=== PATIENT | female | born 1940 | race Caucasian/White ===

== ENCOUNTER 2021-03-12 08:35 | Outpatient (REF) | payer MEDICARE, SELFPAY ==
--- NOTE | ~2021-03-12 | MM_ITS ---
EXAMINATION: MM SCREENING DIGITAL BREAST TOMOSYNTHESIS, BILATERAL CLINICAL INFORMATION: Screening. Asymptomatic. The lifetime risk of breast cancer based on the Tyrer-Cuzick Model is 1%. COMPARISON: Mammography: 03/11/2020, 11/04/2018, 11/02/2017 TECHNIQUE: Digital breast tomosynthesis is performed in both the craniocaudal and mediolateral oblique views along with computer-aided detection (CAD). Synthesized 2D images are generated from the tomosynthesis. FINDINGS: There are scattered areas of fibroglandular density (ACR BI-RADS breast composition Category b). There are no significant masses, abnormal calcifications, or other abnormalities. Parenchymal pattern is similar to prior exams. No developing density. The axilla and skin contours are unremarkable. MM/MM tomosynthesis screening BI IMPRESSION: No mammographic evidence of malignancy. ASSESSMENT: BI-RADS 1: Negative RECOMMENDATION: Routine annual mammography screening. This patient's information was entered into a reminder system with a target due date for their next mammogram.
== END 2021-03-12 08:36 | disposition home or self-care (01) ==
LOC: HO.MAMMO 08:35
PROVIDERS: PCP Internal Medicine; Visit Provider Internal Medicine
DX: Z12.31 Encounter for screening mammogram for malignant neoplasm of breast (principal)
CPT/HCPCS: 77063; 77067

== ENCOUNTER 2021-06-06 13:52 | Outpatient (REF) | payer MEDICARE, SELFPAY ==
--- NOTE | ~2021-06-06 | XR_ITS ---
EXAMINATION: XR KNEE, RIGHT CLINICAL INFORMATION: Right knee pain. COMPARISON: Most recent right knee radiographs dated 07/20/2018. TECHNIQUE: Four views of the right knee. FINDINGS: Moderate medial compartment joint space narrowing with subchondral cystic change and subchondral sclerosis. Moderate patellofemoral compartment joint space narrowing with subchondral sclerosis and mild bony remodeling. Tricompartmental marginal osteophytes. No fracture or dislocation. Trace joint effusion. XR/XR knee RT 4V IMPRESSION: Tricompartmental osteoarthritis, progressed when compared to the prior radiographs. Trace joint effusion.
== END 2021-06-06 13:53 | disposition home or self-care (01) ==
LOC: HO.HMGCX 13:52
PROVIDERS: PCP Internal Medicine; Visit Provider Physician Assistant Medical
DX: M25.561 Pain in right knee (principal)
CPT/HCPCS: 73564

== ENCOUNTER 2022-03-17 08:01 | Outpatient (REF) | payer MEDICARE, SELFPAY ==
--- NOTE | ~2022-03-17 | MM_ITS ---
EXAMINATION: BONE DENSITOMETRY CLINICAL INDICATION: Other specified disorders of bone density. COMPARISON: Previous BD dated 03/11/2020 and baseline BD dated 05/03/2008. TECHNIQUE: Using a [employer] DXA System (software version: 13.1) manufactured by [employer], dual-energy x-ray absorptiometry was performed of the lumbar spine and left hip. The images are of good technical quality. Summary results are attached. FINDINGS: AP SPINE L1-L4: Current: BMD 0.915 g/cm2, Z-score 0.1, T-score -2.2, osteopenia, 2.9% decrease from previous, 1.2% decrease from baseline (<5% change is not significant). Prior: BMD 0.942 g/cm2. Baseline: BMD 0.926 g/cm2. LEFT FEMUR, NECK: Current: BMD 0.719 g/cm2, Z-score 0.3, T-score -2.3, osteopenia. Prior: BMD 0.707 g/cm2. Baseline: BMD 0.824 g/cm2. LEFT FEMUR, TOTAL: Current: BMD 0.798 g/cm2, Z-score 0.8, T-score -1.7, osteopenia, 5.6% increase from previous, 16.4% decrease from baseline (<5% change is not significant). Prior: BMD 0.756 g/cm2. Baseline: BMD 0.954 g/cm2. IDENTIFIED RISK FACTORS: Osteoporosis, height loss, osteoporosis, family history (parental hip fracture). Early menopause, secondary osteoporosis. HISTORY OF FRACTURE: None listed. MEDICATIONS: Calcium supplements or multivitamin, vitamin D, bisphosphonates. MM/XR DEXA axial skeleton IMPRESSION: 1. DIAGNOSIS: Osteopenia based on the lowest T-score value of -2.3 in the femoral neck applying World Health Organization criteria. 2. 10-YEAR FRACTURE RISK PREDICTION, FRAX: Major osteoporotic fracture (clinical spine, forearm, hip or shoulder) 30.8%. Hip fracture 21.9%. 3. Treatment Recommendations: NOF guidelines recommend consideration for treatment in postmenopausal women and men age 50 and older presenting with the following: -A hip or vertebral (clinical or morphometric) fracture. -T-score less than or equal to -2.5 at the femoral neck or spine after appropriate evaluation to exclude secondary causes. -Low bone mass at the hip or spine and a 10-year fracture probability by FRAX of greater than or equal to 3% for hip fracture or greater than or equal to 20% for major osteoporotic fracture based on the [place] adapted WHO algorithm. 4. Other Recommendations: All treatment decisions require clinical judgment and consideration of individual patient factors, including patient preferences, comorbidities, previous drug use, risk factors not captured in the FRAX model (e.g. frailty, falls, vitamin D deficiency, increased bone turnover, interval significant decline in bone density) and possible under or overestimation of fracture risk by FRAX. Additional medical evaluation for secondary cause of low bone mineral density may be appropriate. FUTURE SCAN RECOMMENDATION: People with diagnosed cases of osteoporosis or at high risk for fracture should have regular bone mineral density tests. For patients eligible for Medicare, routine testing is allowed once every 2 years. The testing frequency can be increased to one year for patients who have rapidly progressing disease, those who are receiving or discontinuing medical therapy to restore bone mass, or have additional risk factors.
--- NOTE | ~2022-03-17 | MM_ITS ---
EXAMINATION: MM SCREENING DIGITAL BREAST TOMOSYNTHESIS, BILATERAL CLINICAL INFORMATION: Screening. Asymptomatic. The lifetime risk of breast cancer based on the Tyrer-Cuzick Model is 0.6%. COMPARISON: Mammography: March 12, 2021 and studies dating back to September 26, 2013 TECHNIQUE: Digital breast tomosynthesis is performed in both the craniocaudal and mediolateral oblique views along with computer-aided detection (CAD). Synthesized 2D images are generated from the tomosynthesis. FINDINGS: There are scattered areas of fibroglandular density (ACR BI-RADS breast composition Category b). There are no significant masses, abnormal calcifications, or other abnormalities. MM/MM tomosynthesis screening BI IMPRESSION: There are no significant changes from prior study. ASSESSMENT: BI-RADS 1: Negative RECOMMENDATION: Routine annual mammography screening. This patient's information was entered into a reminder system with a target due date for their next mammogram.
== END 2022-03-17 08:02 | disposition home or self-care (01) ==
LOC: HO.MAMMO 08:01
PROVIDERS: Visit Provider Internal Medicine
DX: Z12.31 Encounter for screening mammogram for malignant neoplasm of breast (principal); Z13.820 Encounter for screening for osteoporosis; M85.89 Other specified disorders of bone density and structure, multiple sites; Z78.0 Asymptomatic menopausal state
CPT/HCPCS: 77063; 77067; 77080

== ENCOUNTER 2022-06-04 06:37 | Outpatient (REF) | payer MEDICARE, SELFPAY ==
[2022-06-04 12:02] LABS: Vitamin D 25-OH Total 74.6 ng/mL (>30)
[2022-06-04 12:06] LABS: Alanine Aminotransferase 15 U/L (0-31); Anion Gap 15 (12-20); Aspartate Amino Transferase 25 U/L (5-31); Blood Urea Nitrogen 23 mg/dL (9-16); Calcium 9.3 mg/dL (8.4-10.2); Carbon Dioxide 25 mmol/L (22-29); Chloride 104 mmol/L (96-108); Cholesterol 176 mg/dL; Estimated Glomerular Filt Rate > 60; Glucose Fasting 104 mg/dL (60-99); HDL Cholesterol 47 mg/dL; LDL Cholesterol Calculated 109 mg/dl; Sodium 140 mmol/L (135-145); Triglycerides 103 mg/dL
[2022-06-04 12:07] LABS: Folate > 20.0 ng/mL (> or = 4.0); Vitamin B12 629 pg/mL (200-900)
== END 2022-06-04 06:38 | disposition home or self-care (01) ==
LOC: HO.HMGCLDS 06:37
PROVIDERS: PCP Internal Medicine; Visit Provider Internal Medicine
DX: M85.80 Other specified disorders of bone density and structure, unspecified site (principal); M19.90 Unspecified osteoarthritis, unspecified site; K83.01 Primary sclerosing cholangitis; N95.9 Unspecified menopausal and perimenopausal disorder; Z51.81 Encounter for therapeutic drug level monitoring; Z79.83 Long term (current) use of bisphosphonates
CPT/HCPCS: 36415; 80048; 80061; 82306; 82607; 82746; 84450; 84460

== ENCOUNTER 2022-08-25 11:00 | Outpatient (RCR) | payer MEDICARE, SELFPAY ==
--- NOTE | 2022-07-27 11:33 | MHC.PT.EP ---
[facility] [place] Office [place] Office [place] Office [address] Katie Michaud [address] [phone] F: [phone] F: [phone] F: [phone] F: [phone] Physical Therapy Plan of Care Date of Evaluation: Date of Surgery: n/a Diagnosis: sprain of joints of neck Assessment: Patient is am 81 year old female presenting to PT with complaints of pain in her neck. Pt reports onset of pain began about 1 month ago due to insidious onset but possibly due to pushing something heavy. She presents today with impairments in pain, cervical ROM, posture, and tenderness to UT on L. 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 Clinical presentation today is most consistent with signs and sx associated with possible UT strain and pt will benefit from skilled PT to address the following problems and impairments noted upon evaluation: pain, cervical ROM, posture, and tenderness to UT on L. These problems limit the patient with the following functional activities: sleeping, driving. The prescribed treatment plan of care is medically necessary. Co-morbidities of osteoporosis, vertigo were identified and taken into considerations of plan of care. Pt was educated on HEP, role of PT, prognosis, POC. Frequency and Duration: The patient will be seen 1 x week x 4 weeks Short Term Goals: Pt will demonstrate min to no tenderness in UT area in 2 weeks. Pt will demonstrate no pain with cervical AROM in available range in 2 weeks. Building Maintenance Engineer Goals: Pt will demonstrate improved NDI score by 10% in 4 weeks for improved functional mobility. Pt will report improved tolerance to turning her head when driving in 4 weeks for return to PLOF. Treatment Plan: Modalities to reduce pain, spasms and effusion. Manual therapy to restore motion and function. Therapeutic exercise to improve strength and flexibility. Neuromuscular re-education for posture and balance. Therapeutic activities to return to functional activities of daily living. Electronically signed by: Vicky Adame, PT, DPT, ATC Please sign and return to therapist. Thank you for your referral.
--- NOTE | 2022-08-25 11:48 | MHC.PT.DC ---
[facility] [place] Office [place] Office [place] Office [address] Katie Michaud [address] [phone] F: [phone] F: [phone] F: [phone] F: [phone] Physical Therapy Discharge Report Diagnosis: sprain of joints of neck Date of Surgery: n/a Date of Evaluation: 07/27/22 Date of Discharge: 08/25/22 Treatments to Date: 5 Cancellations to Date: 0 No Shows to Date: 0 Discharge Status: Achieved Goals Improved Function Independent with HEP Discharge Summary: 08/25/2022: Pt has made improvements since beginning skilled PT. Her pain is much more managed at this point and she is independent in her HEP. She has also met the majority of her goals. Discussed that with continuation of HEP she will likely be able to manage this residential. Pt understanding and in agreement. At this point max benefits of PT have been provided and skilled PT is no longer indicated at this time. Pt is in agreement with d/c today. Electronically signed by: Vicky Adame, PT, DPT, ATC Please sign and return to therapist. Thank you for your referral.
== END 2022-08-25 11:49 | disposition home or self-care (01) ==
LOC: HO.PTCHIC 11:00
PROVIDERS: PCP Internal Medicine; Visit Provider Internal Medicine
DX: S13.9XXA Sprain of joints and ligaments of unspecified parts of neck, initial encounter (principal)
CPT/HCPCS: 97110; 97140; 97161

== ENCOUNTER 2022-10-16 10:20 | Emergency (ER) | payer MEDICARE, SELFPAY ==
--- NOTE | ~2022-10-16 | CT_ITS ---
EXAMINATION: CT CHEST WITHOUT CONTRAST CLINICAL INFORMATION: Fall COMPARISON: None TECHNIQUE: Multidetector volumetric CT imaging of the chest was done. Axial MIP volume rendering provided. Sagittal and coronal reformatted images were obtained. This CT examination was performed using dose optimization techniques as appropriate, variously including the following: *Automated exposure control *Adjustment of mA and/or kV according to patient size (this includes techniques or standardized protocols for targeted exams where dose is matched to indication/reason for exam; i.e. extremities or head) *Use of iterative reconstruction technique DLP: 155 mGy-cm FINDINGS: The thoracic inlet is felt to be within normal limits. Partially imaged upper abdominal structures demonstrate a cystic lesion associated with the pancreas. This show some peripheral calcification. Measures 1.9 x 1.5 cm. It involves the pancreatic body to the left of midline. The axillary regions are unremarkable. Centrally there is no free fluid in the chest. Coronary calcifications are noted. Aneurysmal change of the ascending aorta. 3.5 x 3.6 cm. Imaging of the lung king. Right lung; No pneumothorax or effusion. Probable apical scarring. Multiple scattered small nodules are noted. Some bronchial plugging is also noted here. No evidence of nodularity over 3 mm. Left lung; Chronic change or atelectasis in the lingula. No pneumothorax or effusion. Once again some scattered areas of small nodularity. 4 mm nodule on image 287 of series 4 in left lower lung. Other smaller nodules are noted. Some bronchial plugging is also noted here. Review of the bone windows does not demonstrate evidence for acute fracture. CT/CT chest wo IV con IMPRESSION: No acute finding. No fracture. No pneumothorax or effusion. Multiple small lung nodules. Correlation recommended clinically. Largest 4 mm. Recommend low-dose noncontrast study in 9 months to a year for continued evaluation. Cystic pancreatic lesion. Recommend ultrasound. Other findings are as described above
[2022-10-16 10:32] VITALS: BP 142/80; BP 152/76; PULSE 71; PULSE 76; RESP 18; TEMP 36.7; O2SAT 97; BMI 20.9
--- NOTE | 2022-10-16 11:38 | ECG_ITS ---
Test Reason : FALL Blood Pressure : / mmHG Vent. Rate : 061 BPM Atrial Rate : 061 BPM P-R Int : 174 ms QRS Dur : 076 ms QT Int : 400 ms P-R-T Axes : 022 -05 039 degrees QTc Int : 402 ms Normal sinus rhythm Low voltage QRS Borderline ECG When compared with ECG of 01-FEB-2003 10:30, No significant change was found Referred By: Chao Cortez Electronically Signed By:AIDAN MCCULLOUGH
--- NOTE | 2022-10-16 11:56 | ED_ITS ---
HPI - Chest Pain General Chief Complaint: Fall Stated Complaint: Noncardiac CP Fall Time Seen by Provider: 10/16/22 11:36 Source: patient Mode of arrival: ambulatory Limitations: no limitations History of Present Illness HPI narrative: 82 year old female presents to the ED with left sided chest wall tenderness afte r slipping on ice landing on her right side. Patient denies cough fever chills. She slick LOC complaint: chest pain Related Data Home Medications Medication Instructions Recorded Confirmed calcium carbonate 600 mg calcium 1,600 mg PO DAILY 01/27/21 09/01/21 (1,500 mg) tablet (Calcium) cholecalciferol (vitamin D3) 25 25 mcg PO DAILY 01/27/21 09/01/21 mcg (1,000 unit) capsule mecobalamin (vitamin B12) 1,000 1,000 mcg PO DAILY 01/27/21 09/01/21 mcg chewable tablet multivitamin-ferrous 1 tab PO DAILY 01/27/21 09/01/21 fumarate-folic acid 18 mg-400 mcg tablet (Centrum Women) omega-3 fatty acids 1,000 mg 1,000 mg PO DAILY 01/27/21 09/01/21 capsule s-adenosylmethionine 400 mg 400 mg PO DAILY 01/27/21 09/01/21 tablet,delayed release (TRESSA-e (Enteric Coated)) vitamin E succinate 268 mg (400 400 unit PO DAILY 01/27/21 09/01/21 unit) tablet Previous Rx's Medication Instructions Recorded alendronate 70 mg tablet 70 mg PO QWEEK 3 months #13 tabs 04/12/22 cyclobenzaprine 10 mg tablet 10 mg PO BEDTIME #14 tabs 06/24/22 meloxicam 15 mg tablet 15 mg PO DAILY #14 tabs 06/24/22 Allergies Allergy/AdvReac Type Severity Reaction Status Date / Time acetaminophen [Percocet] Allergy Unknown skin rash Verified 06/24/22 16:33 oxycodone [Percocet] Allergy Unknown skin rash Verified 06/24/22 16:33 Review of Systems Review of Systems: Review of systems: General: Patient denies any fever chills recent illness or falls Musculoskeletal: Denies back pain or body aches or other injuries HEENT: denies headache, runny nose, ear pain Respiratory: denies shortness of breath, cough Cardiovascular: left chest wall chest pain no palpitations : denies dysuria, frequency Abdomen: no nausea vomiting denies abdominal pain Extremities: no swelling, no pain Skin: no diaphoresis Yes all other systems are reviewed and are negative PMFSH Past Medical History Medical History Complicated laceration of lip Encounter for monitoring alendronate therapy Osteoarthritis Osteoarthritis of left knee Osteopenia Primary sclerosing cholangitis Stress fracture of left toe Surgical History History of arthroplasty of left knee Hx of colonoscopy Social History Social History Housing: House Alcohol intake: never Patient Tobacco Use Status: Never used Tobacco e-Cigarette/Vaping Use: Never Used Advance Directives: Yes Advance Directives Information Provided: Yes Advance Directives on File: No Current occupational status: retired Cognitive needs: No Hearing needs: No Vision needs: Yes Physical Exam Vital Signs: Vital Signs: Last Vital Signs Temp 98.0 F 10/16/22 10:32 Pulse 76 10/16/22 13:07 Resp 18 10/16/22 10:32 BP 172/85 H 10/16/22 13:07 Pulse Ox 97 10/16/22 13:07 O2 Del Method 10/16/22 13:07 BMI result Body Mass Index 20.9 General: Well-appearing well-nourished in no signs of distress HEENT: Normocephalic atraumatic Neck: No signs of JVD, no masses no tenderness or lymphadenopathy Cardiovascular: Regular rate and rhythm Respiratory: Clear to auscultation bilaterally Abdomen: Soft nontender no masses Extremities: Normal pedal pulses no signs of edema Skin: Dry warm no rashes Back: No tenderness full ROM Medications Administered Discontinued Medications Generic Name Dose Route Start Last Admin Trade Name Freq PRN Reason Stop Dose Admin Sodium Chloride 1,000 mls @ 999 mls/hr 10/16/22 11:45 10/16/22 12:18 Ns IV 10/16/22 12:45 999 mls/hr .Q1H1M BEV Administration Medical Decision Making Medical Decision Making MDM Narrative: I did send the patient for a CT to make sure there is no acute fractures ofchest wall her 1342 CT is negative patient looks well I will discharge the patient home. Differential Diagnosis Differential Diagnoses: The differential diagnosis associated with the presentation includes rib fracture contusions Lab Data MDM Lab Attestation statement: I reviewed the patient's lab results. 10/16/22 12:10 Labs: Lab Results 10/16/22 Range/Units 12:10 Sodium 142 (135-145) mmol/L Potassium 4.4 (3.3-5.1) mmol/L Chloride 109 H (96-108) mmol/L Carbon Dioxide 28 (22-29) mmol/L Anion Gap 9 L (12-20) BUN 22 H (9-16) mg/dL Creatinine 0.71 (0.5-1.4) mg/dL Estim Creat Clear Calc 45.2 Estimated GFR > 60 Random Glucose 89 (60-115) mg/dL Calcium 9.9 D (8.4-10.2) mg/dL Independent Interpretation I performed an independent interpretation of an: CT Scan Radiology Impression Discussion of test interpretation with radiology: I have reviewed the radiologist's reading. Discharge Plan Discharge Clinical Impression: Chest wall contusion Patient Disposition: Home, Self-Care Instructions: Rib Contusion (ED) Additional Instructions: Please call to follow up. If you have any other concerns please return to the ED Prescriptions: No Action alendronate 70 mg tablet 70 mg PO QWEEK 90 Days Qty: 13 3RF Centrum Women 18-400 mg-mcg tablet 1 tab PO DAILY calcium carbonate [Calcium 600] 600 mg calcium (1,500 mg) tablet 1,600 mg PO DAILY mecobalamin (vitamin B12) 1,000 mcg tablet,chewable 1,000 mcg PO DAILY cholecalciferol (vitamin D3) 25 mcg (1,000 unit) capsule 25 mcg PO DAILY vitamin E succinate 400 unit tablet 400 unit PO DAILY TRESSA-e (Enteric Coated) 400 mg tablet,delayed release (DR/EC) 400 mg PO DAILY omega-3 fatty acids 1,000 mg capsule 1,000 mg PO DAILY meloxicam 15 mg tablet 15 mg PO DAILY Qty: 14 0RF cyclobenzaprine 10 mg tablet 10 mg PO BEDTIME Qty: 14 0RF
[2022-10-16] MEDS: 0.9 % Sodium Chloride 1,000 ML 999 ML IV (12:18)
[2022-10-16 12:39] LABS: Anion Gap 9 (12-20); Blood Urea Nitrogen 22 mg/dL (9-16); Calcium 9.9 mg/dL (8.4-10.2); Carbon Dioxide 28 mmol/L (22-29); Chloride 109 mmol/L (96-108); Creatinine Clr Calc Pharmacy 45.2; Estimated Glomerular Filt Rate > 60; Glucose Random 89 mg/dL (60-115); Potassium 4.4 mmol/L (3.3-5.1); Sodium 142 mmol/L (135-145)
[2022-10-16 13:07] VITALS: BP 172/85; PULSE 76; O2SAT 97
== END 2022-10-16 14:22 | disposition home or self-care (01) ==
PROVIDERS: Emergency Provider Student in an Organized Health Care Education/Training Program; PCP Internal Medicine
DX: S20.213A Contusion of bilateral front wall of thorax, initial encounter (principal); M54.6 Pain in thoracic spine; R07.89 Other chest pain; W01.0XXA Fall on same level from slipping, tripping and stumbling without subsequent striking against object, initial encounter; Y93.9 Activity, unspecified; Y92.9 Unspecified place or not applicable; Y99.9 Unspecified external cause status; Z79.899 Other long term (current) drug therapy
CPT/HCPCS: 36415; 71250; 80048; 93005; 99284

== ENCOUNTER 2023-01-11 11:05 | Outpatient (REF) | payer MEDICARE, SELFPAY ==
--- NOTE | ~2023-01-11 | XR_ITS ---
EXAMINATIONS: XR SHOULDER 4 VIEWS EACH, BILATERAL CLINICAL INFORMATION: Bilateral shoulder pain COMPARISON: None. TECHNIQUE: AP views of each shoulder were obtained in internal and external rotation. In addition, axillary and Y views were obtained. FINDINGS: There are no fractures or dislocations. The humeral head is seated within a well-formed glenoid on each side. The AC joints demonstrate mild degenerative changes on the left and unremarkable on the right XR/XR shoulder RT min 2V IMPRESSION: Mild degenerative changes in the left acromioclavicular joint. Otherwise unremarkable bilateral shoulder radiographs.
--- NOTE | ~2023-01-11 | XR_ITS ---
EXAMINATIONS: XR SHOULDER 4 VIEWS EACH, BILATERAL CLINICAL INFORMATION: Bilateral shoulder pain COMPARISON: None. TECHNIQUE: AP views of each shoulder were obtained in internal and external rotation. In addition, axillary and Y views were obtained. FINDINGS: There are no fractures or dislocations. The humeral head is seated within a well-formed glenoid on each side. The AC joints demonstrate mild degenerative changes on the left and unremarkable on the right XR/XR shoulder LT min 2V IMPRESSION: Mild degenerative changes in the left acromioclavicular joint. Otherwise unremarkable bilateral shoulder radiographs.
[2023-01-11 15:24] LABS: Erythrocyte Sedimentation Rate 43 MM/HR (0-20)
[2023-01-13 15:18] LABS: CRP High Sensitivity >10.0 mg/L
== END 2023-01-11 11:06 | disposition home or self-care (01) ==
LOC: HO.HMGCX 11:05
PROVIDERS: PCP Internal Medicine; Visit Provider Internal Medicine
DX: M25.511 Pain in right shoulder (principal); M25.512 Pain in left shoulder
CPT/HCPCS: 36415; 73030; 85652; 86141

== ENCOUNTER 2023-01-24 03:55 | Emergency (ER) | payer MEDICARE, SELFPAY ==
--- NOTE | ~2023-01-24 | XR_ITS ---
EXAMINATION: XR HIP, RIGHT CLINICAL INFORMATION: Fall COMPARISON: None available. TECHNIQUE: Two views of the right hip. FINDINGS: Alignment across the hips is anatomic. Slight joint space narrowing bilaterally. No acute fracture is seen. Sacroiliac joints and pubic symphysis appear intact. XR/XR hip RT w PEL1V IMPRESSION: No acute findings identified.
[2023-01-24 03:59] VITALS: BP 150/92; PULSE 88; RESP 16; TEMP 36.1; O2SAT 97; BMI 20.8
--- NOTE | 2023-01-24 04:36 | PC.NURSE ---
Pt A&Ox4, reports 9/10 right hip pain after tripping and falling at 1830 last night at home, pain worsens with movement, feeling pressure and aching. Pt able to move both extremities off of stretcher. Pt brought over to x-ray for imaging.
--- NOTE | 2023-01-24 06:05 | ED_ITS ---
HPI - Fall General Chief Complaint: Fall Stated Complaint: fall Time Seen by Provider: 01/24/23 05:54 Source: patient Mode of arrival: ambulatory Limitations: no limitations History of Present Illness HPI Narrative: 82-year-old female presents with right hip pain after a fall. Patient was ambulating at home when she tripped over report on the floor. She did not hit her head or lose consciousness. There is no prodrome such as lightheadedness, chest pain, palpitations or shortness of breath. She did suffer injury to the right hip. The pain is moderate to severe. Worse with ambulation. She was able to ambulate though. The pain does not radiate. There is no numbness or tingling. Patient denies any head trauma or loss of consciousness. There has been no prior treatment. Related Data Home Medications Medication Instructions Recorded Confirmed calcium carbonate 600 mg calcium 1,600 mg PO DAILY 01/27/21 09/01/21 (1,500 mg) tablet (Calcium) cholecalciferol (vitamin D3) 25 25 mcg PO DAILY 01/27/21 09/01/21 mcg (1,000 unit) capsule mecobalamin (vitamin B12) 1,000 1,000 mcg PO DAILY 01/27/21 09/01/21 mcg chewable tablet multivitamin-ferrous 1 tab PO DAILY 01/27/21 09/01/21 fumarate-folic acid 18 mg-400 mcg tablet (Centrum Women) omega-3 fatty acids 1,000 mg 1,000 mg PO DAILY 01/27/21 09/01/21 capsule s-adenosylmethionine 400 mg 400 mg PO DAILY 01/27/21 09/01/21 tablet,delayed release (TRESSA-e (Enteric Coated)) Previous Rx's Medication Instructions Recorded alendronate 70 mg tablet 70 mg PO QWEEK 3 months #13 tabs 04/12/22 cyclobenzaprine 10 mg tablet 10 mg PO BEDTIME #14 tabs 01/11/23 tramadol 50 mg tablet 50 mg PO DAILY #7 tabs 01/11/23 meloxicam 15 mg tablet 15 mg PO DAILY PRN pain, moderate 01/20/23 #30 tabs Allergies Allergy/AdvReac Type Severity Reaction Status Date / Time oxycodone [Percocet] Allergy Unknown skin rash Verified 01/12/23 00:25 Review of Systems Review of Systems: CONSTITUTIONAL: Denies weight loss, fever and chills. HEENT: Denies changes in vision and hearing. RESPIRATORY: Denies SOB and cough. CV: Denies palpitations no CP. GI: Denies abdominal pain, nausea, vomiting and diarrhea. : Denies dysuria and urinary frequency. MSK: + myalgia and joint pain. SKIN: Denies rash and pruritus. NEUROLOGICAL: Denies headache and syncope. PSYCHIATRIC: Denies recent changes in mood. Denies anxiety and depression. All other ROS are negative unless in HPI PMFSH Past Medical History Medical History Complicated laceration of lip Encounter for monitoring alendronate therapy Osteoarthritis Osteoarthritis of left knee Osteopenia Shoulder pain, bilateral Stress fracture of left toe Surgical History History of arthroplasty of left knee Hx of colonoscopy Social History Social History Housing: House Alcohol intake: never Patient Tobacco Use Status: Never used Tobacco Smoked in Last 30 Days: No e-Cigarette/Vaping Use: Never Used Use of substances other than those prescribed or required for medical reasons: No Advance Directives: No Advance Directives Information Provided: No Current occupational status: retired Cognitive needs: No Hearing needs: No Vision needs: Yes Physical Exam Vital Signs: Vital Signs: Last Vital Signs Temp 97 F 01/24/23 03:59 Pulse 88 01/24/23 03:59 Resp 16 01/24/23 03:59 BP 150/92 H 01/24/23 03:59 Pulse Ox 97 01/24/23 03:59 O2 Del Method Room Air 01/24/23 03:59 BMI result Body Mass Index 20.8 GEN: Well developed, no acute distress, alert, oriented HEENT: Normocephalic, atraumatic, normal external ears, nose appears normal, no oropharyngeal edema or exudates Eyes: Normal to appearance Neck: Supple, no lymphadenopathy Respiratory: Talks in complete sentences, no respiratory distress, clear to auscultation bilaterally Cardiovascular: Regular rate and rhythm, no murmurs rubs or gallops Abdomen: Soft, nontender, nondistended, no guarding, no rebound Back: No CVA tenderness Extremities: No clubbing cyanosis or edema Neurologic: No focal neurologic deficits, cranial nerves 2-12 intact, strength is 5/5 bilaterally Skin: No rash Course Course Course Narrative: 82-year-old female presents with right hip pain after a fall. There is no external rotation or shortening. She is neurovascular intact. X-ray was negative for acute pelvic or hip fracture. She will receive Tylenol for pain. She has analgesics and muscle relaxers at home. She will follow-up with her primary care doctor as needed. Medical Decision Making Medical Decision Making [facility] Narrative: Patient presents with acute right hip pain after fall. She did not hit her head on lose consciousness. Was mechanical fall. She suffers right hip pain which could be due to contusion, sprain, strain, fracture, dislocation. She is otherwise without complaint. Will obtain an x-ray to rule out fracture or dislocation. Will provide patient with analgesia Independent Interpretation I performed an independent interpretation of an: Plain X-Ray (Right hip and pelvis no fracture) Radiology Impression Discussion of test interpretation with radiology: I have reviewed the radiologist's reading. Radiologist Impression: XR/XR hip RT w PEL1V IMPRESSION: No acute findings identified. ? Dictated By: Niranjan Galvez MD Signed By: <Electronically signed by Niranjan Galvez MD in OV> 01/24/23 0502 Independent Historian Clinical information obtained from an independent historian. History obtained from or confirmed by: Other (family) Prescription Management I considered prescription management with: Pain Medication Discharge Plan Discharge Clinical Impression: Acute hip pain Patient Disposition: Home, Self-Care Instructions: Hip Pain (ED) Prescriptions: No Action alendronate 70 mg tablet 70 mg PO QWEEK 90 Days Qty: 13 3RF meloxicam 15 mg tablet 15 mg PO DAILY PRN (Reason: pain, moderate) Qty: 30 0RF Centrum Women 18-400 mg-mcg tablet 1 tab PO DAILY calcium carbonate [Calcium 600] 600 mg calcium (1,500 mg) tablet 1,600 mg PO DAILY mecobalamin (vitamin B12) 1,000 mcg tablet,chewable 1,000 mcg PO DAILY cholecalciferol (vitamin D3) 25 mcg (1,000 unit) capsule 25 mcg PO DAILY TRESSA-e (Enteric Coated) 400 mg tablet,delayed release (DR/EC) 400 mg PO DAILY omega-3 fatty acids 1,000 mg capsule 1,000 mg PO DAILY cyclobenzaprine 10 mg tablet 10 mg PO BEDTIME Qty: 14 0RF tramadol 50 mg tablet 50 mg PO DAILY Qty: 7 0RF Referrals: Abril Mathis MD [Primary Care Provider] - 1 week
[2023-01-24] MEDS: Acetaminophen 325 MG TABLET 975 MG PO (06:13)
== END 2023-01-24 06:21 | disposition home or self-care (01) ==
PROVIDERS: Emergency Provider Emergency Medicine; PCP Internal Medicine
DX: M25.551 Pain in right hip (principal); R10.2 Pelvic and perineal pain
CPT/HCPCS: 73502; 99283; 99284

== ENCOUNTER → 2023-01-28 08:36 | Outpatient (BNVA) | payer MEDICARE, SELFPAY | PROVIDERS: PCP Internal Medicine; Visit Provider Orthopaedic Surgery | DX: M75.51 Bursitis of right shoulder (principal); M75.52 Bursitis of left shoulder | CPT/HCPCS: 20610; 99202; J1100 ==

== ENCOUNTER 2023-02-21 03:28 | Emergency (ER) | payer MEDICARE, SELFPAY ==
[2023-02-21 03:29] VITALS: BP 119/98; PULSE 89; RESP 16; TEMP 36.6; O2SAT 97; BMI 19.7
--- NOTE | 2023-02-21 03:56 | PC.NURSE ---
Assumed care of pt. Pt brought to room via heelchair, concerned about standing but able to stand and pivot without incident. Pt c/o L gluteal pain, no radiation, since Wednesday, after gardening. Sts took 1 Advil at home with no relief. No previous history of neurological issues, +CMS x 4.
--- NOTE | 2023-02-21 04:09 | ED.GENADULT ---
HPI - General Adult General Chief complaint: Back Pain/Injury Stated complaint: L back/hip pain Time Seen by Provider: 02/21/23 03:56 Source: patient Mode of arrival: ambulatory Limitations: no limitations History of Present Illness HPI narrative: 82-year-old female presents with left buttock pain. Symptoms started approximately 4-5 days ago. Patient describes the symptoms as constant with intermittent exacerbations. Unclear what makes her symptoms worse. There has been some improvement with ibuprofen. She denies any numbness or tingling. The pain starts in left buttock he does not radiate. There was no loss of bowel or bladder control. There is no saddle paresthesias. There is no low back pain. Patient denies any falls or injury. Patient now describes her pain as severe. It started off as mild in nature. Patient describes the pain as sharp Related Data Home Medications Medication Instructions Recorded Confirmed calcium carbonate 600 mg calcium 1,600 mg PO DAILY 01/27/21 09/01/21 (1,500 mg) tablet (Calcium) cholecalciferol (vitamin D3) 25 25 mcg PO DAILY 01/27/21 09/01/21 mcg (1,000 unit) capsule mecobalamin (vitamin B12) 1,000 1,000 mcg PO DAILY 01/27/21 09/01/21 mcg chewable tablet multivitamin-ferrous 1 tab PO DAILY 01/27/21 09/01/21 fumarate-folic acid 18 mg-400 mcg tablet (Centrum Women) omega-3 fatty acids 1,000 mg 1,000 mg PO DAILY 01/27/21 09/01/21 capsule s-adenosylmethionine 400 mg 400 mg PO DAILY 01/27/21 09/01/21 tablet,delayed release (TRESSA-e (Enteric Coated)) acetaminophen 500 mg tablet 500 mg PO Q8H PRN 02/02/23 02/02/23 (Tylenol Extra Strength) Previous Rx's Medication Instructions Recorded alendronate 70 mg tablet 70 mg PO QWEEK 3 months #13 tabs 04/12/22 cyclobenzaprine 5 mg tablet 5 mg PO TID PRN muscle spasm #7 02/21/23 tabs meloxicam 7.5 mg tablet 7.5 mg PO DAILY #10 tabs 02/21/23 Allergies Allergy/AdvReac Type Severity Reaction Status Date / Time oxycodone [Percocet] Allergy Unknown skin rash Verified 02/02/23 09:56 Review of Systems Review of Systems: CONSTITUTIONAL: Denies weight loss, fever and chills. HEENT: Denies changes in vision and hearing. RESPIRATORY: Denies SOB and cough. CV: Denies palpitations no CP. GI: Denies abdominal pain, nausea, vomiting and diarrhea. : Denies dysuria and urinary frequency. MSK: Positive myalgia and joint pain. SKIN: Denies rash and pruritus. NEUROLOGICAL: Denies headache and syncope. PSYCHIATRIC: Denies recent changes in mood. Denies anxiety and depression. All other ROS are negative unless in HPI PMFSH Past Medical History Medical History Acute right hip pain Complicated laceration of lip Encounter for monitoring alendronate therapy Frequent falls Osteoarthritis Osteoarthritis of left knee Osteopenia Shoulder pain, bilateral Stress fracture of left toe Surgical History History of arthroplasty of left knee Hx of colonoscopy Social History Social History Housing: House Alcohol intake: never Patient Tobacco Use Status: Never used Tobacco Smoked in Last 30 Days: No e-Cigarette/Vaping Use: Never Used Use of substances other than those prescribed or required for medical reasons: No Advance Directives: No Advance Directives Information Provided: No Current occupational status: retired Cognitive needs: No Hearing needs: No Vision needs: Yes Physical Exam ED Vital Signs: Vital Signs - 24 hr 02/21/23 03:29 Temperature 97.8 F Pulse Rate 89 Respiratory Rate 16 Blood Pressure 119/98 H Pulse Oximetry 97 Oxygen Delivery Method Room Air BMI result Body Mass Index 19.7 GEN: Well developed, no acute distress, alert, oriented HEENT: Normocephalic, atraumatic, normal external ears, nose appears normal, no oropharyngeal edema or exudates Eyes: Normal to appearance Neck: Supple, no lymphadenopathy Respiratory: Talks in complete sentences, no respiratory distress, clear to auscultation bilaterally Cardiovascular: Regular rate and rhythm, no murmurs rubs or gallops Abdomen: Soft, nontender, nondistended, no guarding, no rebound Back: No CVA tenderness Extremities: No clubbing cyanosis or edema Neurologic: No focal neurologic deficits, cranial nerves 2-12 intact, strength is 5/5 bilaterally Skin: No rash Course Course Course Narrative: Is 444 in the morning. The workup is complete. X-ray shows no evidence of fracture. Pain is most likely spasm, strain are strain. This possibility there could be radiculopathy associated with the however the pain limited to the buttock area. Patient will take meloxicam 7.5 mg daily for 7 days, Tylenol 1000 mg every 6 hours as needed for additional pain relief and cyclobenzaprine con of 5 mg every 8 hours as needed. Patient is where this medication may cause her fatigue. I have also recommended use of a walker until she is more stable. Medications Administered Discontinued Medications Generic Name Dose Route Start Last Admin Trade Name Freq PRN Reason Stop Dose Admin Acetaminophen 975 mg 02/21/23 04:04 02/21/23 04:15 Acetaminophen 325 Mg Tablet PO 02/21/23 04:05 975 mg ONCE ONE Administration Cyclobenzaprine HCl 5 mg 02/21/23 04:04 02/21/23 04:16 Cyclobenzaprine Hcl 5 Mg Tablet PO 02/21/23 04:05 5 mg ONCE ONE Administration Medical Decision Making Medical Decision Making [facility] Narrative: 82-year-old female presents with nontraumatic buttock pain/hip pain. Exam is benign. Patient has a history of osteoporosis. Will obtain an x-ray of the hip and pelvis to rule out fracture. Most likely symptoms are consistent with sprain, strain, spasm. Patient will receive Tylenol and a muscle relaxer and re-evaluation following his imaging studies. Differential Diagnosis Differential Diagnoses: The differential diagnosis associated with the presentation includes (See above) Independent Interpretation I performed an independent interpretation of an: Plain X-Ray (Left hip/pelvis: No acute fracture) Prescription Management I considered prescription management with: Pain Medication Discharge Plan Discharge Clinical Impression: Left buttock pain Patient Disposition: Home, Self-Care Instructions: Musculoskeletal Pain (ED) Prescriptions: New meloxicam 7.5 mg tablet 7.5 mg PO DAILY Qty: 10 0RF cyclobenzaprine 5 mg tablet 5 mg PO TID PRN (Reason: muscle spasm) Qty: 7 0RF Rx Instructions: May cause drowsiness No Action alendronate 70 mg tablet 70 mg PO QWEEK 90 Days Qty: 13 3RF Centrum Women 18-400 mg-mcg tablet 1 tab PO DAILY calcium carbonate [Calcium 600] 600 mg calcium (1,500 mg) tablet 1,600 mg PO DAILY mecobalamin (vitamin B12) 1,000 mcg tablet,chewable 1,000 mcg PO DAILY cholecalciferol (vitamin D3) 25 mcg (1,000 unit) capsule 25 mcg PO DAILY TRESSA-e (Enteric Coated) 400 mg tablet,delayed release (DR/EC) 400 mg PO DAILY omega-3 fatty acids 1,000 mg capsule 1,000 mg PO DAILY acetaminophen [Tylenol Extra Strength] 500 mg tablet 500 mg PO Q8H PRN Referrals: Abril Mathis MD [Primary Care Provider] - 5 days
== END 2023-02-21 04:58 | disposition home or self-care (01) ==
PROVIDERS: Emergency Provider Emergency Medicine; PCP Internal Medicine
DX: M25.552 Pain in left hip (principal); R10.2 Pelvic and perineal pain; M54.50 Low back pain, unspecified
CPT/HCPCS: 73502; 99283; 99284

== ENCOUNTER 2023-04-09 08:44 | Outpatient (AMB) | payer MEDICARE, SELFPAY ==
[2023-04-09 08:52] VITALS: BP 124/70; PULSE 93; O2SAT 97
--- NOTE | 2023-04-09 08:52 | A.OFFPC_ITS ---
Vital Signs 04/09/23 08:52 Height 5 ft 1 in Weight 106 lb BMI 20.0 BP 124/70 Blood Pressure Location Lt brachial Position Sitting Pulse 93 Pulse Source Pulse Oximeter Pulse Oximetry (%) 97 Oxygen Delivery Method Room Air Intake Visit Reasons: [facility] 04/01, fall with fractures pelvic Intake Note: Pt is here today for a follow up visit after being in a Rehab. Allergies oxycodone [Percocet] Allergy (Unknown, Verified 04/09/23 09:41) skin rash tramadol Allergy (Verified 04/09/23 09:41) shakiness Medication List - Last Reconciled 04/09/23 by Abril Mathis MD acetaminophen 975 mg PO Q8H PRN alendronate 70 mg PO QWEEK 3 months calcium carbonate (Calcium) 1,600 mg PO DAILY cholecalciferol (vitamin D3) 25 mcg PO DAILY docusate sodium 100 mg PO DAILY mecobalamin (vitamin B12) 1,000 mcg PO DAILY mqapvzsnfips-ksap-afypu acid 18-400 mg-mcg (Centrum Women) 1 tab PO DAILY omega-3 fatty acids 1,000 mg PO DAILY s-adenosylmethionine (TRESSA-e (Enteric Coated)) 400 mg PO DAILY Tobacco use date assessed: 04/09/23 Dental Screening Dental Screen Date: 04/09/23 Did you have a dental visit in the last 12 months?: Yes Did you have a dental problem in the last 6 months where you did not have access to dental care?: No Was dental information given to patient?: Patient has dentist HPI [facility] 04/01, fall with fractures pelvic HPI Details 82-year-old lady here today for follow-up after recent discharge from [facility] where she underwent short-term rehab after sustaining a sacral fracture and fracture of the left inferior pubic ramus from a fall. She is currently doing better, but still unsteady in her gait. She has OT and PT 2x a week for 60 days in house, and has and appointment with [facility] in May 04/2023 for follow-up. She has osteopenia, has been on alendronate in the past, with minimal improvement in bone density, despite compliance with taking medication and has been staying active, takes adequate calcium and vitamin-D. ON LICENSE OF [facility] Medical History (Updated 04/09/23 @ 09:54 by Abril Mathis MD) Acute right hip pain Complicated laceration of lip Encounter for monitoring alendronate therapy Fracture of left inferior pubic ramus Frequent falls Osteoarthritis Osteoarthritis of left knee Osteopenia Osteopenia of multiple sites Sacral fracture, closed Shoulder pain, bilateral Stress fracture of left toe Surgical History History of arthroplasty of left knee Hx of colonoscopy Social History Housing: House Alcohol intake: never Patient Tobacco Use Status: Never used Tobacco e-Cigarette/Vaping Use: Never Used Current occupational status: retired Cognitive needs: No Hearing needs: No Vision needs: Yes Questionnaire Thrive Questionnaire Date Thrive assessed: 02/02/23 FREDDY-7 AMB Questionnaire FREDDY-7 Date FREDDY - 7 assessed: 02/02/23 Source: Developed by Drs. Toribio Khan, Kandy Kay, Stephen Phan and colleagues, with an educational yu from [employer]. Review of Systems Const Denies fatigue, Denies fever(s), Denies headache(s) and Denies weakness Eyes Denies change in vision ENT Denies dizziness and Denies headache(s) Card Denies chest pain, Denies lightheadedness, Denies palpitations and Denies dyspnea Resp Denies chest congestion, Denies cough, Denies dyspnea and Denies wheezing GI Denies abdominal pain, Denies change in bowel habits and Denies heartburn Denies hematuria, Denies urinary frequency, Denies dysuria and Denies urinary urgency Skin/Breast Denies lesions and Denies rash Neuro Denies dizziness, Denies headache(s) and Denies weakness Endo Denies fatigue, Denies polydipsia, Denies polyuria and Denies palpitations Rikki/Lymph Denies easy bruising Aller/Immun Denies seasonal rhinorrhea and Denies wheezing Physical exam (Primary Care) Vital Signs: Last Vital Signs Pulse 93 04/09/23 08:52 BP 124/70 04/09/23 08:52 Pulse Ox 97 04/09/23 08:52 Oxygen Delivery Method Room Air 04/09/23 08:52 BMI result Body Mass Index 20.0 Tobacco/Smoking Status: Tobacco use Status Tobacco use date assessed 04/09/23 04/09/23 08:58 Patient Tobacco Use Status Never used Tobacco 04/09/23 08:58 e-Cigarette/Vaping Use Never Used 04/09/23 08:58 Thrive Assessment: Date of Thrive Assessment Date Thrive assessed 02/02/23 04/09/23 08:58 Const General: comfortable and no acute distress Nutritional Appearance: average body habitus Orientation/consciousness: patient oriented x3 Limitations: ambulation with walker HENMT Head: Yes normocephalic and Yes atraumatic Face and sinus: Yes face symmetric Mouth: Normal oral and palatal mucosa present, oropharynx normal and moist mucous membranes Neck Neck: Yes full ROM, Yes no lymphadenopathy and Yes supple Back/Spine/Pelvis Cervical Spine: cervical ROM normal, No cervical muscular tenderness and No Cervical spine tenderness Skin General skin exam: no rashes or lesions noted, no ecchymosis and no purpura Neuro General: patient oriented x3 Extrem Other: No pain on palpation over right hip joint, no gross bone deformity or joint swel ling seen General: Yes full ROM, Yes no joint enlargement, Yes no clubbing, cyanosis or edema, Yes no calf tenderness and Yes normal gait Assessment and Plan Assessment & Plan (1) Frequent falls: Code(s): R29.6 - Repeated falls Plan: Currently receiving OT and PT at home (2) Sacral fracture, closed: Code(s): S32.10XA - Unspecified fracture of sacrum, initial encounter for closed fracture Plan: Has follow-up appoint with [facility] scheduled next month (3) Fracture of left inferior pubic ramus: Code(s): S32.592A - Other specified fracture of left pubis, initial encounter for closed fracture Plan: Has a follow-up appointment already scheduled with [facility] next month for follow-up (4) Osteopenia of multiple sites: Code(s): M85.89 - Other specified disorders of bone density and structure, multiple sites Plan: Has been on alendronate in the past for more than 5 years, with minimal improvement in bone density endocrine consult ordered Orders: Referrals Endocrinology Referral R29.6 - Repeated falls, S32.592A - Other specified fracture of left pubis, initial encounter for closed fracture, S32.10XA - Unspecified fracture of sacrum, initial encounter for closed fracture, M85.89 - Other specified disorders of bone density and structure, multiple sites Coding Level of Care Code Est Pt Level 4 (70336) Diagnoses Frequent falls R29.6 Sacral fracture, closed S32.10XA Fracture of left inferior pubic ramus S32.592A Osteopenia of multiple sites M85.89
== END 2023-04-09 10:07 | disposition home or self-care (01) ==
PROVIDERS: PCP Internal Medicine; Visit Provider Internal Medicine
DX: R29.6 Repeated falls (principal); S32.10XA Unspecified fracture of sacrum, initial encounter for closed fracture; S32.592A Other specified fracture of left pubis, initial encounter for closed fracture; M85.89 Other specified disorders of bone density and structure, multiple sites
CPT/HCPCS: 99214

== ENCOUNTER 2023-05-31 08:49 | Outpatient (REF) | payer MEDICARE, SELFPAY | END 2023-05-31 08:50 | disposition home or self-care (01) | LOC: HO.MAMMO 08:49 | PROVIDERS: PCP Internal Medicine; Visit Provider Internal Medicine | DX: Z12.31 Encounter for screening mammogram for malignant neoplasm of breast (principal) | CPT/HCPCS: 77063; 77067 ==

== ENCOUNTER → 2023-05-31 09:00 | Outpatient (BNV) | payer MEDICARE, SELFPAY | PROVIDERS: PCP Internal Medicine; Visit Provider Radiology Diagnostic Radiology | DX: Z12.31 Encounter for screening mammogram for malignant neoplasm of breast (principal) | CPT/HCPCS: 77063; 77067 ==

== ENCOUNTER 2023-12-23 12:53 | Outpatient (AMB) | payer MEDICARE, SELFPAY ==
[2023-12-23 12:56] VITALS: BP 126/74; PULSE 67; O2SAT 98; BMI 20.4
--- NOTE | 2023-12-23 12:56 | AM.OFFVISMDC ---
Intake Vital Signs 12/23/23 12:56 Height 5 ft 1 in Weight 108 lb BMI 20.4 BP 126/74 Blood Pressure Location Lt brachial Position Sitting Pulse 67 Pulse Source Pulse Oximeter Pulse Oximetry (%) 98 Oxygen Delivery Method Room Air Intake Visit Reasons: SWV G0439/osteopenia Allergies oxycodone [Percocet] Allergy (Unknown, Verified 12/23/23 13:14) skin rash tramadol Allergy (Verified 12/23/23 13:14) shakiness Medication List - Last Reconciled 12/23/23 by Abril Mathis MD acetaminophen 975 mg PO Q8H PRN calcium carbonate (Calcium 600) 1,600 mg PO DAILY cholecalciferol (vitamin D3) 25 mcg PO DAILY denosumab (Prolia) 60 mg subcut [id number] mecobalamin (vitamin B12) 1,000 mcg PO DAILY dsoiizcabbsc-icxz-vhesc acid 18-400 mg-mcg (Centrum Women) 1 tab PO DAILY omega-3 fatty acids 1,000 mg PO DAILY s-adenosylmethionine (TRESSA-e (Enteric Coated)) 400 mg PO DAILY HPI SWV G0439/osteopenia HPI Details SWV ?83? year old female with osteopenia currently followed by [facility] endocrinology clinic and currently on Prolia infusion, vitamin-D 3 supplement and calcium supplements, has osteoarthritis mainly in the knees, presents for her subsequent? Annual Wellness Visit. She is up-to-date with her mammogram , last done with benign findings. Last bone density scan was done February 2022, has an appointment to have a repeat DEXA scan done in February 2024 prior to her appointment with [facility] endocrine clinic follow-up. She is up-to-date with her screening for lipids and fasting glucose both of which came back with normal findings, no longer gets cervical cancer screenings or colonoscopy, last 1 done 2015 with negative findings.. She is up-to-date with her flu shot, Tdap Shingrix vaccination Prevnar 20 but does not want to get further COVID vaccines. ? Medical / Social History Reviewed? Past Medical History ?Yes . ? [place] of Care / Care Team list updated ?Yes . ? Surgical/Hospitalization History ?Yes . ? Current Medications (including OTC and supplements) ?Yes . ? Family History ?Yes . ? Tobacco Control form ?Yes . ? AUDIT-C (Alcohol use) form ?Yes . ? Illicit drug use in Social History ?Yes . ? Current diagnosis of depression? ?No ? Appropriate PHQ2/PHQ9 completed ?Yes . ? Data entered by ?Nurse Practitioner Hospitalist and reviewed by provider ? Fall Risk ? Fall History? Have you had any falls with injury in the past year? ?No . ? Have you had two or more falls in the past year? ?No . ? Fall Risk Assessment: ?No falls in the past year . ? HRA filled out by the patient, reviewed by Provider and scanned. ? IPPE/AWV ? Balance? Romberg ?Yes . ? Tandem walk ?unable to do. ? Walk and Turn ?Yes . ? Rise from sit to stand ?Yes . ?Vision? Corrective lens ?none ? Vision screen ? Up-to-date, goes to [facility] ?Hearing? Whisper test ?pass . ?Written Plan?Completed. See Patient Documents.? [facility] Medical History (Updated 12/23/23 @ 13:58 by Abril Mathis MD) Osteopenia of multiple sites Sacral fracture, closed Fracture of left inferior pubic ramus Frequent falls Complicated laceration of lip Stress fracture of left toe Osteopenia Osteoarthritis of left knee Surgical History Hx of colonoscopy History of arthroplasty of left knee Social History Housing: House Alcohol intake: never Patient Tobacco Use Status: Never used Tobacco e-Cigarette/Vaping Use: Never Used Current occupational status: retired Cognitive needs: No Hearing needs: No Vision needs: Yes Questionnaire Medicare Wellness Checkup What is your age?: 80 or older What gender do you identify with?: female During the past 4 weeks, how much have you been bothered by emotional problems such as feeling anxious, depressed, irritable, sad or downhearted, and blue?: not at all During the past 4 weeks, has your physical & emotional health limited your social activities with family, friends, neighbors, or groups?: not at all During the past 4 weeks, how much bodily pain have you generally had?: no pain During the past 4 weeks, was someone available to help you if you needed & wanted help?: yes, as much as I wanted During the past 4 weeks, what was the hardest physical activity you could do for at least 2 minutes?: very light Can you get to places out of walking distance without help? (For eg., can you travel alone on buses, taxis or drive your car?): Yes Can you go shopping for groceries or clothes without someone's help?: Yes Can you prepare your own meals?: Yes Can you do your housework without help?: Yes Because of any health problems, do you need the help of another person with your personal care needs such as eating, bathing, dressing or getting around the house?: No Can you handle your own money without help?: Yes During the past 4 weeks, how would you rate your health in general?: excellent During the past 4 weeks how have things been going for you?: pretty well Are you having difficulties driving your car?: no Do you always fasten your seat belt when you are in a car?: yes, usually During past 4 weeks, have you been bothered by the following: never: Falling or dizzy when standing up, Sexual problems?, Trouble eating well?, Teeth or denture problems?, Problems using the telephone? and Tiredness or fatigue? Have you fallen 2 or more times in the past year?: No Are you afraid of falling?: Yes Are you a smoker?: no During the past 4 weeks, how many drinks of wine, beer, or other alcoholic beverages did you have?: no alcohol at all Do you exercise for about 20 minutes 3 or more times a week?: no, I usually do not exercise this much Have you been given information to help with the following?: yes: Hazards in your house that might hurt you? and no: Keeping track of your medications? How often do you have trouble taking medicines the way you have been told to take them?: I do not have to take medicine How confident are you that you can control & manage most of your health problems?: very confident What is your race?: White Mini Mental State Exam (MMSE) Orientation What is the (year) (season) (date) (day) (month)?: year (2023), season (Spring), date (12/23/2023), day () and month (November) Where are we (state) (county) (town or city) (hospital) (floor)?: state ([place]), county ([place]), town or city ([place]) and hospital/clinic ([facility]) Score Score: 9 Activity of Daily Living Bathing - sponge bath, tub bath or shower: receives no assistance (gets in/out by self, if usual bathing means Dressing - getting clothes from closets & drawers, including inner/outer garments & fasteners.: gets clothes & gets completely dressed without help Toileting - going to the 'toilet room' for urine/bowel elimination & cleaning self/arranging clothes: goes to toilet room, cleans self, arranges clothes without help Transfer: moves in & out of bed and chair without help (may use support object) Continence: controls urination/bowel movements completely by self Feeding: feeds self without help Total Score: 0 Information obtained from: patient Using telephone: independent Traveling: independent Shopping: independent Preparing meals: independent Housework: independent Taking medicine: independent Managing money: independent PHQ-9 Over the last 2 weeks, how often have you been bothered by any of the following problems? 1. Little interest or pleasure in doing things: not at all 3. Trouble falling or staying asleep, or sleeping too much: several days 4. Feeling tired or having little energy: not at all 5. Poor appetite or overeating: not at all 6. Feeling bad about yourself - or that you are a failure or have let yourself or your family down: not at all 7. Trouble concentrating on things, such as reading the newspaper or watching television: not at all 8. Moving or speaking so slowly that other people could have noticed. Or the opposite - being so fidgety or restless that you have been moving around a lot more than usual: not at all 9. Thoughts that you would be better off or of hurting yourself in some way: not at all Depression Screening Interpretation: Negative Depression Screening Done: Yes 42996 - PHQ-9 Billing: Yes Source: Developed by Drs. Toribio Khan, Kandy Kay, Stephen Phan and colleagues, with an educational yu from [employer]. Physical Exam Vital Signs: Last Vital Signs Pulse 67 12/23/23 12:56 BP 126/74 12/23/23 12:56 Pulse Ox 98 12/23/23 12:56 Oxygen Delivery Method Room Air 12/23/23 12:56 BMI result Body Mass Index 20.4 Assessment & Plan Assessment & Plan (1) Encounter for subsequent annual wellness visit (AWV) in Medicare patient: Code(s): Z00.00 - Encounter for general adult medical examination without abnormal findings Plan: Medical wellness checklist reviewed, discussed with patient and updated. She is up-to-date with all her vaccinations, advanced directives already in place (2) Osteopenia of multiple sites: Code(s): M85.89 - Other specified disorders of bone density and structure, multiple sites Plan: Currently followed by [facility] endocrinology clinic, currently on Prolia Coding Level of Care Code Medicare Subsequent (G0439) Diagnoses Encounter for subsequent annual wellness visit (AWV) in Medicare patient Z00.00 Osteopenia of multiple sites M85.89 CPT Codes Advance Care Planning - Advance Care Planning discussion: On file, no changes ([id number]) Advance Care Planning - Time spent: 1-15 minutes, on File ([id number]) Advance Care Planning Advance Care Planning discussion: On file, no changes Date of discussion: 12/23/23 Who was present: Patient Forms completed: Health Care Proxy and MOLST Time spent: 1-15 minutes, on File Actual minutes spent: 15
== END 2023-12-23 13:47 | disposition home or self-care (01) ==
PROVIDERS: Visit Provider Internal Medicine
DX: Z00.00 Encounter for general adult medical examination without abnormal findings (principal); M85.89 Other specified disorders of bone density and structure, multiple sites
CPT/HCPCS: 1123F; G0439

== ENCOUNTER 2024-03-21 07:58 | Outpatient (REF) | payer MEDICARE, SELFPAY ==
--- NOTE | ~2024-03-21 | MM_ITS ---
EXAMINATION: BONE DENSITOMETRY CLINICAL INDICATION: Age-related osteoporosis without current pathological fracture. COMPARISON: Previous BD dated 03/17/2022 and baseline BD dated 05/03/2008. TECHNIQUE: Using a [employer] DXA System (software version: 13.1) manufactured by [employer], dual-energy x-ray absorptiometry was performed of the lumbar spine and left hip. The images are of good technical quality. Summary results are attached. FINDINGS: AP SPINE L1-L4: Current: BMD 0.932 g/cm2, Z-score 0.3, T-score -2.1, osteopenia, 1.9% increase from previous, 0.6% increase from baseline (<5% change is not significant). Prior: BMD 0.915 g/cm2. Baseline: BMD 0.926 g/cm2. LEFT FEMUR, NECK: Current: BMD 0.705 g/cm2, Z-score 0.3, T-score -2.4, osteopenia. Prior: BMD 0.719 g/cm2. Baseline: BMD 0.824 g/cm2. LEFT FEMUR, TOTAL: Current: BMD 0.767 g/cm2, Z-score 0.7, T-score -1.9, osteopenia, 3.9% decrease from previous, 19.6% decrease from baseline (<5% change is not significant). Prior: BMD 0.798 g/cm2. Baseline: BMD 0.954 g/cm2. IDENTIFIED RISK FACTORS: History of adult fracture. Osteoporosis. Height loss. Parental hip fracture. Secondary osteoporosis (early menopause). HISTORY OF FRACTURE: Pelvis. MEDICATIONS: Calcium supplement and/or multivitamin. Vitamin D. Prolia. MM/XR DEXA axial skeleton IMPRESSION: 1. DIAGNOSIS: Osteopenia based on the lowest T-score value of -2.4 in the femoral neck applying World Health Organization criteria. 2. 10-YEAR FRACTURE RISK PREDICTION, FRAX: Not performed in this patient on estrogen or bone building treatments. 3. Treatment Recommendations: NOF guidelines recommend consideration for treatment in postmenopausal women and men age 50 and older presenting with the following: -A hip or vertebral (clinical or morphometric) fracture. -T-score less than or equal to -2.5 at the femoral neck or spine after appropriate evaluation to exclude secondary causes. -Low bone mass at the hip or spine and a 10-year fracture probability by FRAX of greater than or equal to 3% for hip fracture or greater than or equal to 20% for major osteoporotic fracture based on the [place] adapted WHO algorithm. 4. Other Recommendations: All treatment decisions require clinical judgment and consideration of individual patient factors, including patient preferences, comorbidities, previous drug use, risk factors not captured in the FRAX model (e.g. frailty, falls, vitamin D deficiency, increased bone turnover, interval significant decline in bone density) and possible under or overestimation of fracture risk by FRAX. Additional medical evaluation for secondary cause of low bone mineral density may be appropriate. FUTURE SCAN RECOMMENDATION: People with diagnosed cases of osteoporosis or at high risk for fracture should have regular bone mineral density tests. For patients eligible for Medicare, routine testing is allowed once every 2 years. The testing frequency can be increased to one year for patients who have rapidly progressing disease, those who are receiving or discontinuing medical therapy to restore bone mass, or have additional risk factors.
== END 2024-03-21 07:59 | disposition home or self-care (01) ==
LOC: HO.MAMMO 07:58
PROVIDERS: PCP Internal Medicine; Visit Provider Internal Medicine Endocrinology, Diabetes & Metabolism
DX: M81.0 Age-related osteoporosis without current pathological fracture (principal)
CPT/HCPCS: 77080

== ENCOUNTER 2024-05-11 13:18 | Outpatient (AMB) | payer MEDICARE, SELFPAY ==
--- NOTE | 2024-05-11 13:56 | MHC.PC.OV ---
Vital Signs 05/11/24 13:57 Height 5 ft 1 in Weight 108 lb BMI 20.4 BP 112/60 Blood Pressure Location Rt brachial Position Sitting Pulse 73 Pulse Source Pulse Oximeter Pulse Oximetry (%) 97 Oxygen Delivery Method Room Air Intake Visit Reasons: Complaining of nocturnal leg cramps Intake Note: Pt is here today c/o bilateral leg pain no injury noted Allergies oxycodone [Percocet] Allergy (Unknown, Verified 05/15/24 02:06) skin rash tramadol Allergy (Verified 05/15/24 02:06) shakiness Medication List - Last Reconciled 05/15/24 by Abril Mathis MD acetaminophen 975 mg PO Q8H PRN calcium carbonate (Calcium 600) 1,600 mg PO DAILY cholecalciferol (vitamin D3) 25 mcg PO DAILY denosumab (Prolia) 60 mg subcut [id number] mecobalamin (vitamin B12) 1,000 mcg PO DAILY vdjigvuqouoi-tavg-ldjhl acid 18-400 mg-mcg (Centrum Women) 1 tab PO DAILY omega-3 fatty acids 1,000 mg PO DAILY s-adenosylmethionine (TRESSA-e (Enteric Coated)) 400 mg PO DAILY Tobacco use date assessed: 05/11/24 Fall risk assessment: No Falls in past year Last assessed Fall Risk: 05/11/24 Dental Screening Dental Screen Date: 05/11/24 Did you have a dental visit in the last 12 months?: Yes Did you have a dental problem in the last 6 months where you did not have access to dental care?: No Was dental information given to patient?: Patient has dentist HPI HPI Comments History of Present Illness Details 83-year-old lady presenting today complaining of intermittent episode of painful cramping in her toes and lower legs, which has occurred on and off now for the last several weeks. Patient states that she has tried drinking more fluids and has been avoiding too much caffeine. Cramps usually occurs only at night, sometimes waking her from sleep. [facility] Medical History (Updated 05/11/24 @ 14:45 by Abril Mathis MD) Nocturnal leg cramps Osteopenia of multiple sites Sacral fracture, closed Fracture of left inferior pubic ramus Frequent falls Complicated laceration of lip Stress fracture of left toe Osteopenia Osteoarthritis of left knee Surgical History Hx of colonoscopy History of arthroplasty of left knee Social History Housing: House Alcohol intake: never Patient Tobacco Use Status: Never used Tobacco e-Cigarette/Vaping Use: Never Used Current occupational status: retired Cognitive needs: No Hearing needs: No Vision needs: Yes Questionnaire PHQ-9 Over the last 2 weeks, how often have you been bothered by any of the following problems? 1. Little interest or pleasure in doing things: not at all 2. Feeling down, depressed, or hopeless: not at all 3. Trouble falling or staying asleep, or sleeping too much: not at all 4. Feeling tired or having little energy: not at all 5. Poor appetite or overeating: not at all 6. Feeling bad about yourself - or that you are a failure or have let yourself or your family down: not at all 7. Trouble concentrating on things, such as reading the newspaper or watching television: not at all 8. Moving or speaking so slowly that other people could have noticed. Or the opposite - being so fidgety or restless that you have been moving around a lot more than usual: not at all 9. Thoughts that you would be better off or of hurting yourself in some way: not at all Total score: 0 Depression Screening Interpretation: Negative Depression Screening Done: Yes 29934 - PHQ-9 Billing: Yes Source: Developed by Drs. Toribio Khan, Kandy Kay, Stephen Phan and colleagues, with an educational yu from [email or web address]. Thrive Questionnaire Date Thrive assessed: 05/11/24 I am a: Patient What is your living situation today?: I have a steady place to live Within the past 12 months, did the food you bought not last and you didn't have the money to get more?: Never true Within the past 12 months, did you worry whether your food would run out before you got money to buy more?: Never true Do you have trouble paying for medicines?: No Do you have trouble getting transportation to medical appointments?: No Do you have trouble paying your heating and electricity bill?: No Do you have trouble taking care of your child, family member or friend?: No Do you have trouble with day-to-day activities such as bathing, preparing meals, shopping, managing finances, etc.?: No Are you interested in more education?: No Please select the resources that you would like help with: None Currently or been in a relationship where the following occur: No concerns reported THRIVE Score: 0 AUDIT C Alcohol Use Questionnaire (AUDIT-C) 1. How often do you have a drink containing alcohol?: Never Total Score: 0 FREDDY-7 AMB Questionnaire FREDDY-7 Date FREDDY - 7 assessed: 05/11/24 Feeling nervous, anxious, or on edge: 0 = Not at all Not being able to stop or control worryin = Not at all Worrying too much about different things: 1 = Several days Trouble relaxin = Not at all Being so restless that it is hard to sit still: 0 = Not at all Becoming easily annoyed or irritable: 0 = Not at all Feeling afraid as if something awful might happen: 0 = Not at all Total FREDDY-7 score (0-4 normal; 5-9 mild; 10-14 moderate; 15-21 severe): 1 Source: Developed by Drs. Toribio Khan, Kandy Kay, Stephen Phan and colleagues, with an educational yu from [email or web address]. FREDDY-7 Assessment Billing FREDDY-7 Assessment Tool: FREDDY-7 Assessment 27195 Review of Systems Const Denies fatigue, Denies fever(s), Denies headache(s) and Denies weakness ENT Denies dizziness and Denies headache(s) Card Denies chest pain, Denies lightheadedness, Denies palpitations and Denies dyspnea Resp Denies chest congestion, Denies cough, Denies dyspnea and Denies wheezing GI Denies abdominal pain, Denies change in bowel habits and Denies heartburn Denies hematuria, Denies urinary frequency, Denies dysuria and Denies urinary urgency Skin/Breast Denies lesions and Denies rash Neuro Denies dizziness, Denies headache(s) and Denies weakness Endo Denies fatigue, Denies polydipsia, Denies polyuria and Denies palpitations Rikki/Lymph Denies easy bruising Aller/Immun Denies seasonal rhinorrhea and Denies wheezing Physical exam (Primary Care) Vital Signs: Last Vital Signs Pulse 73 05/11/24 13:57 BP 112/60 05/11/24 13:57 Pulse Ox 97 05/11/24 13:57 Oxygen Delivery Method Room Air 05/11/24 13:57 BMI result Body Mass Index 20.4 Tobacco/Smoking Status: Tobacco use Status Tobacco use date assessed 05/11/24 05/11/24 13:59 Patient Tobacco Use Status Never used Tobacco 05/11/24 13:59 e-Cigarette/Vaping Use Never Used 05/11/24 13:59 PHQ-9: PHQ-9 Score PHQ-9: Total score 0 05/11/24 14:46 Depression Screening Interpretation: Negative Thrive Assessment: Date of Thrive Assessment Date Thrive assessed 05/11/24 05/11/24 13:59 Currently or been in a relationship where the following occur: No concerns reported Const General: comfortable and no acute distress Nutritional Appearance: average body habitus Orientation/consciousness: patient oriented x3 HENMT Head: Yes normocephalic and Yes atraumatic Face and sinus: Yes face symmetric Mouth: Normal oral and palatal mucosa present, oropharynx normal and moist mucous membranes Neck Neck: Yes full ROM, Yes no lymphadenopathy and Yes supple Resp Auscultation: clear to auscultation bilaterally Cardio Other: S1-S2 present regular rate and rhythm GI Other: Normal bowel sounds, soft, nontender with no mass palpated General: Yes no CVA tenderness Back/Spine/Pelvis Back: no CVA tenderness and No back tenderness Skin General skin exam: no ecchymosis and no purpura Neuro General: patient oriented x3 Extrem General: Yes full ROM, Yes no joint enlargement, Yes no clubbing, cyanosis or edema, Yes no calf tenderness and Yes normal gait Assessment and Plan Assessment & Plan (1) Nocturnal leg cramps: Code(s): G47.62 - Sleep related leg cramps Plan: Try taking magnesium oxide 4-50 mg 1 daily for at least a week, keep your legs and feet warm at night when sleeping, wears socks stay well-hydrated Coding Level of Care Code Est Pt Level 3 (14890) Diagnoses Nocturnal leg cramps G47.62 Additional Codes FREDDY-7 Assessment Billing - FREDDY-7 Assessment Tool: FREDDY-7 Assessment 59558 ([id number])
[2024-05-11 13:57] VITALS: BP 112/60; PULSE 73; O2SAT 97; BMI 20.4
== END 2024-05-11 16:50 | disposition home or self-care (01) ==
PROVIDERS: PCP Internal Medicine; Visit Provider Internal Medicine
DX: G47.62 Sleep related leg cramps (principal)

== ENCOUNTER → 2024-05-11 13:18 | Outpatient (BNVA) | payer MEDICARE, SELFPAY | PROVIDERS: PCP Internal Medicine; Visit Provider Internal Medicine | DX: G47.62 Sleep related leg cramps (principal) | CPT/HCPCS: 96127; 99212 ==

== ENCOUNTER 2024-06-02 08:17 | Outpatient (REF) | payer MEDICARE, SELFPAY ==
--- NOTE | ~2024-06-02 | MM_ITS ---
EXAMINATION: MM SCREENING DIGITAL BREAST TOMOSYNTHESIS, BILATERAL CLINICAL INFORMATION: Screening. Asymptomatic. COMPARISON: Mammography: Comparison is made with available priors TECHNIQUE: Digital breast mammography with tomosynthesis is performed in both the craniocaudal and mediolateral oblique views along with computer-aided detection (CAD). FINDINGS: The breasts are heterogeneously dense, which may obscure small masses (ACR BI-RADS breast composition Category c). Bilateral scattered asymmetries are stable. There are no significant masses, abnormal calcifications, or other abnormalities. MM/MM tomosynthesis screening BI IMPRESSION: No mammographic evidence of malignancy. ASSESSMENT: BI-RADS BI-RADS 2 - Benign Findings RECOMMENDATION: Routine annual mammography screening. 1 year F/U This examination should not preclude the clinical evaluation of a suspicious palpable abnormality. This patient's information was entered into a reminder system with a target due date for their next mammogram. Electronically signed by: Cesilia Barroso DO 06/13/2024 12:35 PM EDT
== END 2024-06-02 08:18 | disposition home or self-care (01) ==
LOC: HO.MAMMO 08:17
PROVIDERS: PCP Internal Medicine; Visit Provider Internal Medicine
DX: Z12.31 Encounter for screening mammogram for malignant neoplasm of breast (principal)
CPT/HCPCS: 77063; 77067

== ENCOUNTER → 2024-06-02 08:30 | Outpatient (BNV) | payer MEDICARE, SELFPAY | PROVIDERS: PCP Internal Medicine; Visit Provider Internal Medicine | DX: Z12.31 Encounter for screening mammogram for malignant neoplasm of breast (principal) | CPT/HCPCS: 77063; 77067 ==

== ENCOUNTER 2024-12-08 08:06 | Outpatient (REF) | payer MEDICARE, SELFPAY ==
[2024-12-08 11:14] LABS: Folate > 20.0 ng/mL (> or = 4.0); Vitamin B12 723 pg/mL (200-900)
[2024-12-13 13:24] LABS: VITAMIN D (1,25 OH) D3 40 pg/mL; Vit D (1,25-Dihydroxy) Total 40 pg/mL (18-72); Vitamin D (1,25 OH) D2 <8 pg/mL
== END 2024-12-08 08:07 | disposition home or self-care (01) ==
LOC: HO.HMGCLDS 08:06
PROVIDERS: PCP Internal Medicine; Visit Provider Nurse Practitioner Family
DX: R20.0 Anesthesia of skin (principal)
CPT/HCPCS: 36415; 82607; 82652; 82746; 99212

== ENCOUNTER 2024-12-08 08:06 | Outpatient (AMB) | payer MEDICARE, SELFPAY ==
--- OUTSIDE RECORDS SUMMARY | 2024-12-08 08:18 | XMS_ITS ---
Author Organization [facility] Address [address] [facility] [place] [address] Care Team Providers Care P[place] Maori Name Role Phone Del DASILVA, Abril Hicks Primary Care Provider Un available Oscar Lloyd Unavailable [phone] Allergies Allergen (clinical drug ingredient) Drug/Non Drug Allergy documented on EMR Reaction Allergy Type Onset Date Status acetaminophen / oxycodone Percocet Unknown Drug Allergy Active tramadol traMADol HCl Unknown Drug Allergy Acti ve REASON FOR VISIT At Risk Footcare, Painful Nail(s) aggravated by shoes and causing difficulty standing/walking., Skin Problem Medications Medication SIG (Take, Route, Frequency, Duration) Notes Start Date End Date Status Proleva Active Ciclopirox Olamine 0.77 % 1 application Externally Twice a day to skin of feet including between the toes for 30 days Active Social History Tobacco Use: Social History Observation Description Date Details (start date - stop date) Never Smoker NA - NA Alcohol Screen Question Answer Notes Did you have a drink containing alcohol in the p ast year? No Points 0 Interpretation Negative Tobacco use other than smoking: Question Answer Notes Are you an other tobacco user? No Tobacco Control (Standard) Question Answer Notes Tobacco use: Nonsmoker Additional Findings: Tobacco non-user Current no nsmoker Vital Signs Height 5 ft 1 in in 09/27/2024 Weight 108 lbs 09/27/2024 BMI 20.4 kg/m2 09/27/2024 Procedures Procedure Date Ordered Date Performed Result Body Sit e 28692-PGLLOKN NAIL, 6 OR MORE 09/27/2024 N/A 45208-SNEX SKIN LESIONS, 2 TO 4 09/27/2024 N/A Encounters Encounter Location Date [facility] [place] [address] [address] 09/27/2024 Oscar Lloyd Atherosclerosis of [place] artery of both lower extremities, with unspecified presence of clinical manifestation I70.203 ; Tinea unguium B35.1 ; Pain in right toe(s) M79.674 ; Pain in left toe(s) M79.675 and Tinea pedis of both feet B35.3 Assessments Encounter Date Diagnosis (ICD Code) Assessment Notes Treatment Notes Treatment Clinical Notes Section Notes 09/27/2024 Atherosclerosis of [place] artery of both lower extremities, with unspecified presence of clinical manifestation (ICD-10 - I70.203) 09/27/2024 Tinea unguium (ICD-10 - B35.1) 09/27/2024 Pain in right toe(s) (ICD-10 - M79.674) 09/27/2024 Pain in left toe(s) (ICD-10 - M79.675) 09/27/2024 Tinea pedis of both feet (ICD-10 - B35.3) Plan Of Treatment Medication Medication Name Sig Start Date Stop Date Notes Ciclopirox Olamine 0.77 % 1 application Externally Twice a day to skin of feet including between the toes for 30 days Pending Test Test Name Order Date 23377-AIJQOMS NAIL, 6 OR MORE 09/27/2024 18891-QLNA SKIN LESIONS, 2 TO 4 09/27/19 25 Next Appt Details Follow Up: prn, Reason: Provider Name:Oscar Beebeunier , 12/27/2024 09:45:00 AM, [address] [facility] [place] [address], [place], [address], Procedure Notes * Category Sub-Category Detail Notes Debride Nail 6-10 Nail debridement Due to the cl inical pathology outlined in the exam findings, performance of this nail treatment is medically necessary as its management by an unskilled/untrained nonprofessional would put this patients foot and overall health at risk. Therefore, debridement to affected nail(s), as described in exam ( TA, T1, T3, T4,T5, T6, T7, T8, T9 ), was performed exclusively by the physician of record to reduce/remove overall nail length, girth, thickness, subungual debris, and necrotic tissue, by manual and/or electrical means through the use of a nail nipper and/or dremel-type grinder set up operator gear tool, to a more viable healthy nail plate or bed tissue 6-10 nails in total. Silver nitrate was used for any petechial bleeding as necessary. Definitive antifungal treatment options, both pharmaceutical and surgical, have been reviewed and discussed with the patient. The patient solely prefers the use of intermittent/as needed professional debridement services for their nail condition and understands the need for additional periodic treatments to maintain effectiveness in symptomatic relief - 61661 Keratoma Treatment Parring or Cutting o f Benign Hyperkeratotic Lesion(s) (-56) 2-4 Lesions - Due to the at risk nature of the patients medical condition as documented in the exam findings, performance of this keratoderma treatment is medically necessary as its management by an unskilled/untrained nonprofessional would put this patients foot and overall health at risk. Therefore, the benign hyperkeratotic lesions, ( 3 ) in total, locations as stated and described in the exam ( SUB MTH (s) , 1 , B/L, Medial-plantar Midfoot, Left ), were pared, and/or cut utilizing a sterile 15 blade, tissue nippers, and/or power dremel instrumentation by the physician of record - 14131, Q9 Progress Notes * Sejal LARSON VDOB:1940 (83 yo F)Acc No.[id number]:09/27/2024 Progress Note Patient:?Sejal LARSON V Provider:?Oscar Lloyd DPM :1940???Age:83 Y???Sex:Female D ate:09/27/2024 Address:[address] [place] [address] [id number] Pcp:Eileen Alicea Subjective: * Chief Complaints: * ???At Risk FootcarePainful N ail(s) aggravated by shoes and causing difficulty standing/walking.Skin Problem * HPI: ???At Risk footcare:?Pt States Last PCP Visit:?Date?06/27/2024 ???Skin problems:?Nature:?scaling , redness.?Location:?B/L .?Duration:?several days.?Course:?worse.? * ROS:?General/Constitutional:?Nausea?denies.?Vomiting?denies.?Hunger Thirst?denies.?Loss appetite?denies.?Chills?denies.?Fatigue?denies.?Fever?denies.?Night Sweats?denies.?Unexplained weight loss?denies.?Unexplained weight gain?denies.?HEENTM:?Dentures?admits.?Dizziness?admits.?Glasses/contacts?admits.?Retinopathy?de nies.?Blurred/double vision?denies.?TMJ?denies.?Discharge/drainage?denies.?Implants?denies.?Sore throat?denies.?Dental implants?denies.?Hard of hearing ?denies.?Difficulty chewing/swallowing/speaking?denies.?Nose bleeds?denies.?Sore mouth?denies.?Respiratory:?On Oxygen?denies.?Pneumonia/pleurisy?denies.?Bronchitis?denies.?Emphysema?denies.?C oughing?denies.?Cough blood?denies.?Shortness of breath?denies.?Wheezing?denies.?Cardiovascular:?Pacemaker?denies.?MVP?denies.?WPW?denies.?CHF?denies.?Heart attack?denies.?Septal defect?denies.?Rapid beat?denies.?Chest pain ?denies.?Atrial Fib.?denies.?Murmur/Palpitations?denies.?Gastrointestinal:?Hemorrhoids?denies.?Stomach/Abdominal pain?admits.?Dark blood stool?denies.?Irritable bowel ?denies.?Constipation?admits.?Diarrhea?denies.?Hematology:?Swelling?denies.?Clots?denies.?Varicose Veins?admits.?Bruising?denies.?Bleeding problem?denies.?Genitourinary:?Blood urine?denies.?Frequent/Painfu/urination/bladder control?denies.?Kidney stones?denies.?Infection (UTI)?denies.?Nephropathy?denies.?sex trans dis (STD)?denies.?Prostate?denies.?Musculoskeletal:?Hammertoes?admits.?Bunions?denies.?Back Pain?denies.?Muscle Cramps/ Resting?denies.?Muscle cramps / walking?denies.?Generalized aches and pains?denies.?Weakness?denies.?Integ.:?Beckman?denies.?Scars?denies.?Corns/calluses?admits.?Ingrown nails?admits.?Painful nails?admits.?Open Sores?denies.?Rashes?denies.?Neurologic:?Difficulty sleeping?denies.?Brain disorder?denies.?Numbness?denies.?Balance trouble?admits.?Confusion?denies.?Fainting/blackouts?denies.?Tingling?denies.?Tr emors?denies.? * Medical History:? * Surgical History:?tubal liga tion 1974uterine surgery 2017knee replacement 2019 * Hospitalization/Major Diagno stic Procedure:?No Hospitalization History. * Family History:?Mother: dece ased, arthritis, diagnosed with Unspecified cerebral artery occlusion with cerebral infarction.?Father: , arthritis, diagnosed with Unspecified heart disease.?Siblings: alive, diagnosed with Diabetic - NIDDM.? * Social History:?Tobacco Use:?Tobacco use other than smoking?Are you an other tobacco user??No ?Tobacco Control (Standard)?Tobacco use:?Nonsmoker ?Additional Findings: Tobacco non-user?Current nonsmoker ???Drugs/Alcohol:?Drugs?Have you used drugs other than those for medical reasons in the past 12 months??No ?Alcohol Screen?Did you have a drink containing alcohol in the past year??No ?Points?0 ?Interpretation?Negative ???Miscellaneous:?Caffeine: yes, frequency: 2 cups per day. ?Children: yes, 4. ?Exercise: no. ?Marital status: . ?Occupation: Retired. * Medications:?TakingProleva M edication List reviewed and reconciled with the patientTaking Proleva Medication List reviewed and reconciled with the patient * Allergies:?Percocet: Allergy - Criticality UnknowntraMADol HCl: Allergy - Criticality Unknownyes[Allergies Verified] Objective: * Vitals:?Ht: 5 ft 1 in, Wt: 1 08, BMI: 20.4, Shoe size: 7.5, Ht-cm: 154.94 cm, Wt- k.99 kg. * Examination: ???Vascular: ?DP PULSES (B):?1/4 , LEFT , 2/4 , RIGHT.?PT PULSES (B):?1/4 , LEFT , 2/4 , RIGHT.?CAPILLARY FILL TIME:? delayed, all digits, B/L.?TROPHIC CONDITION-TEXTURE/ELASTICITY/TURGOR/HAIR GROWTH (B):? decreased, with sparse to absent hair growth, B/L.?TEMPERTURE GRADIENT (C):? decreased, cool to cool, proximal to distal, B/L.?PIGMENTATION:?rubrous, B/L.?EDEMA (C):?absent, B/L.?CLAUDICATION (C):?denies, B/L.?REST PAIN:?denies, B/L.?PARESTHESIA (C):?present, B/L.?Nails: ?NAILS are:? Elongated, overgrown, dystrophic, lytic, greater than 3mm thick, discolored and friable with crumbly malodorous subungual debris, with pain on palpation, TA, T1, T3, T4,T5, T6, T7, T8, T9,all other nails not described with characteristics as possessing mycosis are elongated, overgrown, and dystrophic.?Dermatologic: ?SKIN FINDINGS:?Skin exam reveals Keratotic lesion(s) located at , SUB MTH (s) , 1 , B/L, Medial-plantar Midfoot, Left , Skin shows sign(s) of, erythema, scaling, in a moccasin fashion, no fissure(s) present, B/L.? Assessment: * Assessment: 1.?Tinea unguium - B35.1???2 .?Atherosclerosis of [place] artery of both lower extremities, with unspecified presence of clinical manifestation - I70.203 (Primary)???3.?Pain in right toe(s) - M79.674???4.?Pain in left toe(s) - M79.675 ??5.?Tinea pedis of both feet - B35.3???Specify :Acute problem, Uncomplicated (3),Rx drug management (4)??? Plan: * Treatment: 2.?Tinea unguium?Procedure: 29142-ETKKUUR NAIL, 6 OR MORE 3.?Tinea pedis of both feet? Start Ciclopirox Olamine Cream, 0.77 %, 1 application, Externally, Twice a day to skin of feet including between the toes, 30 days, 120, Refills 3.?? * Procedures:?Debride Nail 6-10:?Nail debridement?Due to the clinical pathology outlined in the exam findings, performance of this nail treatment is medically necessary as its management by an unskilled/untrained nonprofessional would put this patients foot and overall health at risk. Therefore, debridement to affected nail(s), as described in exam (?TA,?T1,?T3,?T4,T5, T6, T7, T8, T9?), was performed exclusively by the physician of record to reduce/remove overall nail length, girth, thickness, subungual debris, and necrotic tissue, by manual and/or electrical means through the use of a nail nipper and/or dremel-type grinder set up operator gear tool, to a more viable healthy nail plate or bed tissue 6- 10 nails in total. Silver nitrate was used for any petechial bleeding as necessary. Definitive antifungal treatment options, both pharmaceutical and surgical, have been reviewed and discussed with the patient. The patient solely prefers the use of intermittent/as needed professional debridement services for their nail condition and understands the need for additional periodic treatments to maintain effectiveness in symptomatic relief - 37722.?Keratoma Treatment:?Parring or Cutting of Benign Hyperkeratotic Lesion(s)?(-56) 2-4 Lesions - Due to the at risk nature of the patients medical condition as documented in the exam findings, performance of this keratoderma treatment is medically necessary as its management by an unskilled/untrained nonprofessional would put this patients foot and overall health at risk. Therefore, the benign hyperkeratotic lesions, ( 3 ) in total, locations as stated and described in the exam (?SUB MTH (s)?,?1?,?B/L,?Medial- plantar Midfoot,?Left?), were pared, and/or cut utilizing a sterile 15 blade, tissue nippers, and/or power dremel instrumentation by the physician of record - 56108, Q9.? * Procedure Codes:?46386 DEBRI DE NAIL, 6 OR MORE, Modifiers: XS 28663 TRIM SKIN LESIONS, 2 TO 4, Modifiers: XS , Q9 * Preventive Medicine:? ??Counseling:?Discussion:?-13: Office or other outpatient visit for the evaluation and management of an established patient, which required a medically appropriate history and/or examination and LOW level of DECISION MAKING for: 1 STABLE ACUTE UNCOMPLICATED PROBLEM, 2 OR MORE MINOR PROBLEMS, OR 1 STABLE CHRONIC PROBLEM, THAT POSE(S) A LOW RISK FOR MORBIDITY/MORTALITY. The visit on the day of the encounter encompassed interpreting the data and educating the patient as to the nature of their condition, treatment options available according to their individual PMH, meds, allergies, and overall health/living conditions, as well as any potential risks or complications that may occur from a failure to adhere to, and participate in, the recommended course of therapy. The discussion included a complete verbal, and/or written explanation of the examination results, any x-rays taken, the proposed diagnosis, and outline of the treatment plan. A schedule for future care needs was also explained. The patient verbalized an understanding of the instructions at this time and agreed to be an active participant in their treatment. If the patient should think of any questions or concerns after the visit, I have encouraged the patient to call the office.?Tinea Pedis:?The patient was counseled on the diagnosis, potential etiologies, and treatment options for their skin condition. We discussed the risks and benefits of each option from performing no treatment, to utilizing OTC topical skin creams, prescription topical creams, customized compounded topical medications, and, if necessary, to utilize oral antifungal therapy. We discussed the advantages and disadvantages of each possible treatment and importance for adherence to all the recommended therapies for optimum success and avoid potential complications such as open sore/infection/possible hospitalization. We discussed the potential effectiveness of each topical preparation as well as each ones possible side effects and/or patient medication interactions if oral therapy is selected. Patient questions re: the advantages and disadvantages of each treatment choice, medication use/dosage, successful outcomes, and application consistency were reviewed and the patient verbalized that all answers were clearly understood. The patient was told they can help alleviate symptoms by utilizing moisture absorbant innersoles with activated charcoal and baking soda, applying antifungal sprays daily, aerating toe web spaces at night by putting cotton or lambs wool between the toes, alternating shoe gear daily if possible so they can dry out, changing socks at least once during the day, wearing well-ventilated shoes or sandals. The patient has decided to apply antifungal skin creams to their feet as directed. Rx was sent to their pharmacy at the time of visit.? ??Screening/Special Tests:?Fall Risk?Screening:?No falls in the past year ?FALLS: Screening for Future Fall Risk?Have you had any falls with injury in the past year??No * Follow Up:?prn * Images: * Sign off status: Completed true * Provider:?Oscar Lloyd DPM Date:?2024 Generated for Ignacia pineda/Crista/Marlene on:?12/08/2024 08:17 AM EDT History and Physical Notes * HPI (History of Present Illness) Category Sub-Category Detail Notes Category Not es Skin problems Nature: scaling , redness Location: B/L Duration: several days Course: worse At Risk footcare Pt States Last PCP Visit: Date: 4 Examination Category Sub-Category Detail Notes Category Not es Dermatologic SKIN FINDINGS: Skin exam reveal s Keratotic lesion(s) located at , SUB MTH (s) , 1 , B/L, Medial-plantar Midfoot, Left , Skin shows sign(s) of, erythema, scaling, in a moccasin fashion, no fissure(s) present, B/L Vascular DP PULSES (B): 1/4 , LEFT , 2/4 , RIGHT PT PULSES (B): 1/4 , LEFT , 2/4 , R IGHT CAPILLARY FILL TIME: delayed, all digits , B/L TEMPERTURE GRADIENT (C): decreased, cool to cool, proximal to distal, B/L TROPHIC CONDITION-TEXTURE/ELASTICITY/TURGOR/HAIR GROWTH (B): decreased, with sparse to absent hair gr owth, B/L EDEMA (C): absent, B/L CLAUDICATION (C): denies, B/L REST PAIN: denies, B/L PIGMENTATION: rubrous, B/L PARESTHESIA (C): present, B/L Nails NAILS are: Elongated, overg rown, dystrophic, lytic, greater than 3mm thick, discolored and friable with crumbly malodorous subungual debris, with pain on palpation, TA, T1, T3, T4,T5, T6, T7, T8, T9,all other nails not described with characteristics as possessing mycosis are elongated, overgrown, and dystrophic
--- OUTSIDE RECORDS SUMMARY | 2024-12-08 08:18 | XMS_ITS ---
Author Organization [facility] Address [address] [facility] [place] [address] Care Team Providers Care Match Maker Name Role Phone Del DASILVA, Abril Hicks Primary Care Provider Un available Oscar Lloyd Unavailable [phone] REASON FOR VISIT Ciclopirox Olamine Rx Encounters Encounter [facility] Date [facility] [place] [address] [place] [phone] 10/26/2024 Oscar Lloyd Plan Of Treatment Next Appt Details Provider Name:Oscar Lloyd , 12/27/2024 09:45:00 AM, [address] [address], [place], [address], Progress Notes * Sejal LARSON VDOB:1940 (84 yo F)Acc No.[id number]:10/26/2024 Patient:?Sejal LARSON V :1940???Age:84 Y???Sex:Female Address[address] [place], [address] * true * Date:? Generated for Pauli edwin/Crista/eTransmitting on:?12/08/2024 08:17 AM EDT
--- OUTSIDE RECORDS SUMMARY | 2024-12-08 08:18 | XMS_ITS ---
Author Organization [facility] Address [address] [facility] [place] [address] Care Team Providers Care Agricultural Inspector Name Role Phone Del DASILVA, Abril Hicks Primary Care Provider Un available Oscar Lloyd Unavailable [phone] Allergies Allergen (clinical drug ingredient) Drug/Non Drug Allergy documented on EMR Reaction Allergy Type Onset Date Status acetaminophen / oxycodone Percocet Unknown Drug Allergy Active tramadol traMADol HCl Unknown Drug Allergy Acti ve REASON FOR VISIT At Risk Footcare, Painful Nail(s) aggravated by shoes and causing difficulty standing/walking. Medications Medication SIG (Take, Route, Frequency, Duration) Notes Start Date End Date Status Proleva Active Social History Tobacco Use: Social History Observation Description Date Details (start date - stop date) Never Smoker NA - NA Tobacco Use/Smoking Question Answer Notes Are you a: nonsmoker Additional Findings: Tobacco Non-User Current no n-smoker Alcohol Screen Question Answer Notes Did you have a drink containing alcohol in the p ast year? No Points 0 Interpretation Negative Tobacco use other than smoking: Question Answer Notes Are you an other tobacco user? No Vital Signs Height 5 ft 1 in in 06/28/2024 Weight 108 lbs 06/28/2024 BMI 20.4 kg/m2 06/28/2024 Procedures Procedure Date Ordered Date Performed Result Body Sit e 93228-LXPGIMJ NAIL, 6 OR MORE 06/28/2024 N/A 25570-ZGGK SKIN LESIONS, 2 TO 4 06/28/2024 N/A Encounters Encounter Location Date [facility] [address] [facility] [address] [place] [address] 06/28/2024 Oscar Lloyd Atherosclerosis of samish artery of both lower extremities, with unspecified presence of clinical manifestation I70.203 ; Tinea unguium B35.1 ; Pain in right toe(s) M79.674 and Pain in left toe(s) M79.675 Assessments Encounter Date Diagnosis (ICD Code) Assessment Notes Treatment Notes Treatment Clinical Notes Section Notes 06/28/2024 Atherosclerosis of samish artery of both lower extremities, with unspecified presence of clinical manifestation (ICD-10 - I70.203) 06/28/2024 Tinea unguium (ICD-10 - B35.1) 06/28/2024 Pain in right toe(s) (ICD-10 - M79.674) 06/28/2024 Pain in left toe(s) (ICD-10 - M79.675) Plan Of Treatment Pending Test Test Name Order Date 18098-RGPFIOD NAIL, 6 OR MORE 06/28/2024 84662-JQOZ SKIN LESIONS, 2 TO 4 06/28/20 Next Appt Details Follow Up: prn, Reason: Provider Name:Oscar Lloyd , 12/27/2024 09:45:00 AM, [address] [facility], [address], [place], [address], Procedure Notes * Category Sub-Category Detail Notes Debride Nail 6-10 Nail debridement Performance o f this nail treatment by a nonprofessional would put this patients foot and overall health at risk. Therefore, nail debridement was performed extensively to reduce/remove overall nail length, girth, thickness, subungual debris, and necrotic tissue, by manual and/or electrical means through the use of a nail nipper and/or dremel-type jewel bearing grinder, to a more viable healthy nail plate or bed tissue 6-10. Silver nitrate used for any petechial bleeding as necessary. Definitive antifungal treatment options have been reviewed and discussed with the patient. The patient chooses, no pharmaceutical tx - 54821 Keratoma Treatment Parring or Cutting o f Benign Hyperkeratotic Lesion(s) (-56) 2-4 Lesions - The Benign hyperkeratotic lesions, as described above were pared, and/or cut utilizing a sterile 15 blade, tissue nippers, and/or dremel - 38872 , Q9 Progress Notes * Sejal LARSON VDOB:1940 (83 yo F)Acc No.[id number]:06/28/2024 Progress Note Patient:Sejal Cedillo V Provider:?Oscar Lloyd DPM :1940???Age:83 Y???Sex:Female D ate:06/28/2024 Address:[address] [place], [place] [id number] Pcp:Eileen Alicea Subjective: * Chief Complaints: * ???At Risk FootcarePainful N ail(s) aggravated by shoes and causing difficulty standing/walking. * HPI: ???At Risk footcare:?Pt States Last PCP Visit:?Date?12/24/2023 * ROS:?General/Constitutional:?Nausea?denies.?Vomiting?denies.?Hunger Thirst?denies.?Loss appetite?denies.?Chills?denies.?Fatigue?denies.?Fever?denies.?Night Sweats?denies.?Unexplained weight loss?denies.?Unexplained weight gain?denies.?HEENTM:?Dentures?admits.?Dizziness?admits.?Glasses/contacts?admits.?Retinopathy?de nies.?Blurred/double vision?denies.?TMJ?denies.?Discharge/drainage?denies.?Implants?denies.?Sore throat?denies.?Dental implants?denies.?Hard of hearing ?denies.?Difficulty chewing/swallowing/speaking?denies.?Nose bleeds?denies.?Sore mouth?denies.?Respiratory:?On Oxygen?denies.?Pneumonia/pleurisy?denies.?Bronchitis?denies.?Emphysema?denies.?C oughing?denies.?Cough blood?denies.?Shortness of breath?denies.?Wheezing?denies.?Cardiovascular:?Pacemaker?denies.?MVP?denies.?WPW?denies.?CHF?denies.?Heart attack?denies.?Septal defect?denies.?Rapid beat?denies.?Chest pain ?denies.?Atrial Fib.?denies.?Murmur/Palpitations?denies.?Gastrointestinal:?Hemorrhoids?denies.?Stomach/Abdominal pain?admits.?Dark blood stool?denies.?Irritable bowel ?denies.?Constipation?admits.?Diarrhea?denies.?Hematology:?Swelling?denies.?Clots?denies.?Varicose Veins?admits.?Bruising?denies.?Bleeding problem?denies.?Genitourinary:?Blood urine?denies.?Frequent/Painfu/urination/bladder control?denies.?Kidney stones?denies.?Infection (UTI)?denies.?Nephropathy?denies.?sex trans dis (STD)?denies.?Prostate?denies.?Musculoskeletal:?Hammertoes?admits.?Bunions?denies.?Back Pain?denies.?Muscle Cramps/ Resting?denies.?Muscle cramps / walking?denies.?Generalized aches and pains?denies.?Weakness?denies.?Integ.:?Beckamn?denies.?Scars?denies.?Corns/calluses?admits.?Ingrown nails?admits.?Painful nails?admits.?Open Sores?denies.?Rashes?denies.?Neurologic:?Difficulty sleeping?denies.?Brain disorder?denies.?Numbness?denies.?Balance trouble?admits.?Confusion?denies.?Fainting/blackouts?denies.?Tingling?denies.?Tr emors?denies.? * Medical History:? * Surgical History:?tubal liga tion 1974uterine surgery 2017knee replacement 2019 * Hospitalization/Major Diagno stic Procedure:?No Hospitalization History. * Family History:?Mother: dece ased, arthritis, diagnosed with Unspecified cerebral artery occlusion with cerebral infarction.?Father: , arthritis, diagnosed with Unspecified heart disease.?Siblings: alive, diagnosed with Diabetic - NIDDM.? * Social History:?Tobacco Use:?Tobacco Use/Smoking?Are you a:?nonsmoker ?Additional Findings: Tobacco Non-User?Current non-smoker ?Tobacco use other than smoking?Are you an other tobacco user??No ???Drugs/Alcohol:?Drugs?Have you used drugs other than those for medical reasons in the past 12 months??No ?Alcohol Screen?Did you have a drink containing alcohol in the past year??No ?Points?0 ?Interpretation?Negative ???Miscellaneous:?Caffeine: yes, frequency: 2 cups per day. ?Children: yes, 4. ?no Exercise. ?Marital status: . ?Occupation: Retired. * Medications:?TakingProleva M edication List reviewed and reconciled with the patientTaking Proleva Medication List reviewed and reconciled with the patient * Allergies:?Percocet: Allergy - Criticality UnknowntraMADol HCl: Allergy - Criticality Unknownyes[Allergies Verified] Objective: * Vitals:?Ht: 5 ft 1 in, Wt: 1 08, BMI: 20.4, Shoe size: 7.5, Ht-cm: 154.94 cm, Wt- k.99 kg. * Examination: ???Vascular: ?DP PULSES(B):?1/4 , LEFT , 2/4 , RIGHT.?PT PULSES(B):?1/4 , LEFT , 2/4 , RIGHT.?CAPILLARY FILL TIME:? delayed, all digits, B/L.?TROPHIC CONDITION-TEXTURE/ELASTICITY/TURGOR/HAIR GROWTH(B):? decreased, with sparse to absent hair growth, B/L.?TEMPERTURE GRADIENT(C):? decreased, cool to cool, proximal to distal, B/L.?PIGMENTATION:?rubrous, B/L.?EDEMA(C):?absent, B/L.?CLAUDICATION(C):?denies, B/L.?REST PAIN:?denies, B/L.?PARESTHESIA(C):?present, B/L.?Nails: ?NAILS are:? Elongated, overgrown, dystrophic, lytic, greater than 3mm thick, discolored and friable with crumbly malodorous subungual debris, with pain on palpation, TA, T1, T3, T4, 1-5 Right foot, remaining nails are elongated, overgrown, dystrophic.?Dermatologic: ?SKIN FINDINGS:?Skin exam reveals Keratotic lesion(s) located at , SUB MTH (s) , 1 , B/L.? Assessment: * Assessment: 1.?Tinea unguium - B35.1?2.? Atherosclerosis of samish artery of both lower extremities, with unspecified presence of clinical manifestation - I70.203?3.?Pain in right toe(s) - M79.674?4.?Pain in left toe(s) - M79.675? Plan: * Treatment: 2.?Atherosclerosis of samish artery of both lower extremities, with unspecified presence of clinical manifestation?Procedure: 13934-YUXW SKIN LESIONS, 2 TO 4 * Procedures:?Debride Nail 6-10:?Nail debridement?Performance of this nail treatment by a nonprofessional would put this patients foot and overall health at risk. Therefore, nail debridement was performed extensively to reduce/remove overall nail length, girth, thickness, subungual debris, and necrotic tissue, by manual and/or electrical means through the use of a nail nipper and/or dremel-type jewel bearing grinder, to a more viable healthy nail plate or bed tissue 6-10. Silver nitrate used for any petechial bleeding as necessary. Definitive antifungal treatment options have been reviewed and discussed with the patient. The patient chooses, no pharmaceutical tx - 72802.?Keratoma Treatment:?Parring or Cutting of Benign Hyperkeratotic Lesion(s)?(-56) 2-4 Lesions - The Benign hyperkeratotic lesions, as described above were pared, and/or cut utilizing a sterile 15 blade, tissue nippers, and/or dremel - 15657 , Q9.? * Procedure Codes:?23651 DEBRI DE NAIL, 6 OR MORE, Modifiers: XS 36713 TRIM SKIN LESIONS, 2 TO 4, Modifiers: XS , Q9 * Follow Up:?prn * Images: * Sign off status: Completed true * Provider:?Oscar Lloyd DPM Date:?2023 Generated for Ignacia pineda/Crista/Marlene on:?12/08/2024 08:17 AM EDT History and Physical Notes * HPI (History of Present Illness) Category Sub-Category Detail Notes Category Not es At Risk footcare Pt States Last PCP Visit: Date: 4 Examination Category Sub-Category Detail Notes Category Not es Dermatologic SKIN FINDINGS: Skin exam reveal s Keratotic lesion(s) located at , SUB MTH (s) , 1 , B/L Vascular DP PULSES (B): 1/4 , [...] with pain on palpation, TA, T1, T3, T4, 1-5 Right foot, remaining nails are elongated, overgrown, dystrophic
--- OUTSIDE RECORDS SUMMARY | 2024-12-08 08:18 | XMS_ITS | Patient Health Record ---
Author Organization [facility] [place] Address [address] [facility] [place] [address] Care Team Providers Care Machine Ceramic Coater Name Role Phone Del DASILVA, Abril Hicks Primary Care Provider Un available Oscar Lloyd Unavailable [phone] Allergies Allergen (clinical drug ingredient) Drug/Non Drug Allergy documented on EMR Reaction Allergy Type Onset Date Status acetaminophen / oxycodone Percocet Unknown Drug Allergy Active tramadol traMADol HCl Unknown Drug Allergy Acti ve Reason For Referral No Information Medications Medication SIG (Take, Route, Frequency, Duration) [...] Additional Findings: Tobacco non-user Current no nsmoker Problems Problem Type SNOMED Code ICD Code Onset Dates Problem Status W/U Status Risk Notes Problem Atherosclerosis of [place] arteries of the extremities ([id number]) Atherosclerosis of [place] artery of both lower extremities, with unspecified presence of clinical manifestation (I70.203) Active confirmed Vital Signs Height 5 ft 1 in in 09/27/2024 Weight 108 lbs 09/27/2024 BMI 20.4 kg/m2 09/27/2024 Procedures Procedure Date Ordered Date Performed Result Body Sit e 20485-OUQITIQ NAIL, 6 OR MORE 03/28/2024 N/A 51284-DIUK SKIN LESIONS, 2 TO 4 03/28/2024 N/A 36469-RXEVMIV NAIL, 6 OR MORE 06/28/2024 N/A 89720-RLVB SKIN LESIONS, 2 TO 4 06/28/2024 N/A 38627-ILYYVPZ NAIL, 6 OR MORE 09/27/2024 N/A 30989-ZGXC SKIN LESIONS, 2 TO 4 09/27/2024 N/A Encounters Encounter Location Date Provider Diagnosis [facility] [address] [place] [address] 03/28/2024 Oscar Lloyd Atherosclerosis of [place] artery of both lower extremities, with unspecified presence of clinical manifestation I70.203 ; Tinea unguium B35.1 ; Pain in right toe(s) M79.674 and Pain in left toe(s) M79.[address] [address] 06/28/2024 Oscar Lloyd Atherosclerosis of [place] artery of both lower extremities, with unspecified presence of clinical manifestation I70.203 ; Tinea unguium B35.1 ; Pain in right toe(s) M79.674 and Pain in left toe(s) M79.[address] [address] 09/27/2024 Oscar Lloyd Atherosclerosis of [place] artery of both lower extremities, with unspecified presence of clinical manifestation I70.203 ; Tinea unguium B35.1 ; Pain in right toe(s) M79.674 ; Pain in left toe(s) M79.675 and Tinea pedis of both feet B35.[address] [address] 10/26/2024 Oscar Lloyd Assessments Encounter Date Diagnosis (ICD Code) Assessment Notes Treatment Notes Treatment Clinical Notes Section Notes 03/28/2024 Tinea unguium (ICD-10 - B35.1) 03/28/2024 Atherosclerosis of [place] artery of both lower extremities, with unspecified presence of clinical manifestation (ICD-10 - I70.203) 06/28/2024 Tinea unguium (ICD-10 - B35.1) 06/28/2024 Atherosclerosis of [place] artery of both lower extremities, with unspecified presence of clinical manifestation (ICD-10 - I70.203) 09/27/2024 Tinea unguium (ICD-10 - B35.1) 09/27/2024 Atherosclerosis of [place] artery of both lower extremities, with unspecified presence of clinical manifestation (ICD-10 - I70.203) 06/28/2024 Pain in right toe(s) (ICD-10 - M79.674) 09/27/2024 Pain in right toe(s) (ICD-10 - M79.674) 03/28/2024 Pain in right toe(s) (ICD-10 - M79.674) 03/28/2024 Pain in left toe(s) (ICD-10 - M79.675) 09/27/2024 Pain in left toe(s) (ICD-10 - M79.675) 06/28/2024 Pain in left toe(s) (ICD-10 - M79.675) 09/27/2024 Tinea pedis of both feet (ICD-10 - B35.3) Plan Of Treatment Pending Test Test Name Order Date 01050-ZZWOLTT NAIL, 6 OR MORE 10/19/2023 48454-VFDQMZX NAIL, 6 OR MORE 03/28/2024 10410-WDVQCJJ NAIL, 6 OR MORE 06/28/2024 59353-FVDQUPA NAIL, 6 OR MORE 09/27/2024 93086-TZPN SKIN LESIONS, 2 TO 4 09/27/19 25 38848-CUYJ SKIN LESIONS, 2 TO 4 06/28/20 24 79474-ZTKG SKIN LESIONS, 2 TO 4 03/28/20 24 05823-FXCJ SKIN LESIONS, 2 TO 4 10/19/19 24 Next Appt Details Provider Name:Oscar Lloyd , 12/27/2024 09:45:00 AM, [address] [address], [place], [address], Insurance Providers Payer Name Payer Address Payer Phone Subscriber Number Group Number Insured Name Patient Relationship to Insured Coverage Start Date Coverage End Date Medicare National [employer] [address] [place] [address] [phone] [id number] Marsha Sejal Self - patient is the insured [facility] [address] [place] [address] [id number] Marsha, Sejal Self - patient is the insured Medical (General) History Medical History History ICD Code Arthritis Back,Hip,and Knee pain covid-19 Liver disease Osteoporosis Measles Chicken pox Joint implants/screws Cataracts Surgical History Surgery Date(Month/Year) tubal ligation 1974 uterine surgery 2016 knee replacement 2019
--- NOTE | 2024-12-08 08:34 | AM.OFFWIN_ITS ---
Intake Vital Signs 12/08/24 08:35 Height 5 ft 1 in Weight 110 lb BMI 20.8 BP 132/72 Blood Pressure Location Lt brachial Position Sitting Respiration 15 Pulse 70 Pulse Source Pulse Oximeter Temp 97.5 F Temp Source Oral Pulse Oximetry (%) 96 Intake Visit Reasons: EP RT hand numbness Intake Note: Pt is here today c/o Rt hand numbness since x6days no injury noted Patient Tobacco Use Status: Never used Tobacco Allergies oxycodone [Percocet] Allergy (Unknown, Verified 05/15/24 02:06) skin rash tramadol Allergy (Verified 05/15/24 02:06) shakiness HPI HPI Comments History of Present Illness Details 84 y/o Female patient who presents to [facility] walk in clinic with c/o Right hand pain and numbness since Wednesday. Reports that Symptoms are on/off, and worse at night time when she is sleeping. [facility] Medical History (Updated 12/08/24 @ 08:51 by Maribell Bowles NP) Numbness of right hand Nocturnal leg cramps Osteopenia of multiple sites Sacral fracture, closed Fracture of left inferior pubic ramus Frequent falls Complicated laceration of lip Stress fracture of left toe Osteopenia Osteoarthritis of left knee Surgical History Hx of colonoscopy History of arthroplasty of left knee Social History Housing: House Alcohol intake: never Patient Tobacco Use Status: Never used Tobacco e-Cigarette/Vaping Use: Never Used Current occupational status: retired Cognitive needs: No Hearing needs: No Vision needs: Yes Review of Systems Const All systems reviewed & are unremarkable except as noted in HPI and below Physical Exam Vital Signs: Last Vital Signs Temp 97.5 F 12/08/24 08:35 Pulse 70 12/08/24 08:35 Resp 15 12/08/24 08:35 BP 132/72 12/08/24 08:35 Pulse Ox 96 12/08/24 08:35 BMI result Body Mass Index 20.8 Const General: no acute distress Nutritional Appearance: thin Orientation/consciousness: patient oriented x3 Neuro General: patient oriented x3 Extrem Right upper extremity: normal to inspection, full ROM and Extremity exam: right hand Details: normal to inspection, normal capillary refill, neuromotor exam normal, normal ROM of fingers and no swelling; no tenderness, no ecchymosis and no crepitus Left upper extremity: normal to inspection and full ROM Psych Speech and movement: Normal speech and movement present Assessment & Plan Assessment & Plan (1) Numbness of right hand: Code(s): R20.0 - Anesthesia of skin Plan: Ordered Lab work for Vitamin D, Vitamin B12 and Folic Acid. Patient Takes Supp for Vitamin A, B, C and D at home. DDx's: Arthritis vs Vitamin Def F/U with PCP Orders: Orders Vitamin B12 and Folate Today R20.0 - Anesthesia of skin Vitamin D 1,25 dihydroxy Today R20.0 - Anesthesia of skin Coding Level of Care Code Est Pt Level 4 (07815) Diagnoses Numbness of right hand R20.0 Time Spent (min) 20
[2024-12-08 08:35] VITALS: BP 132/72; PULSE 70; RESP 15; TEMP 36.4; O2SAT 96; BMI 20.8
== END 2024-12-08 09:19 | disposition home or self-care (01) ==
PROVIDERS: PCP Internal Medicine; Visit Provider Nurse Practitioner Family
DX: R20.0 Anesthesia of skin (principal)

== ENCOUNTER 2025-01-11 10:32 | Outpatient (AMB) | payer MEDICARE, SELFPAY ==
--- NOTE | 2025-01-11 10:38 | A.OFFVIS_ITS ---
Intake Vital Signs 01/11/25 10:55 Height 5 ft 4 in Weight 109 lb BMI 18.7 BP 142/60 H Blood Pressure Location Rt brachial Position Sitting Respiration 18 Pulse 55 Pulse Source Pulse Oximeter Temp 97.4 F Temp Source Oral Pulse Oximetry (%) 97 Oxygen Delivery Method Room Air Intake Visit Reasons: SWV G0439 Intake Note: Pt is here today for her SWV: Last bone density scan 03/21/24, colonoscopy 05/25/16 Allergies oxycodone [Percocet] Allergy (Unknown, Verified 01/11/25 11:24) skin rash tramadol Allergy (Verified 01/11/25 11:24) shakiness Medication List - Last Reconciled 01/11/25 by Abril Mathis MD acetaminophen 975 mg PO Q8H PRN B-complex with vitamin C 1 cap PO DAILY calcium carbonate (Calcium 600) 1,600 mg PO DAILY cholecalciferol (vitamin D3) 25 mcg PO DAILY denosumab (Prolia) 60 mg subcut [id number] omega-3 fatty acids 1,000 mg PO DAILY s-adenosylmethionine (TRESSA-e (Enteric Coated)) 400 mg PO DAILY HPI SWV G0439 HPI Details SWV ?83? year old female with osteopenia currently followed by [facility] endocrinology clinic and currently on Prolia infusion, vitamin-D 3 supplement and calcium supplements, has osteoarthritis mainly in the knees, presents for her subsequent? Annual Wellness Visit. She is up-to-date with her mammogram , last done 06/02/2024 with benign findings. Last bone density scan was done 03/21/2024, showing still osteoporosis, currently on Prolia prescribed by Dr. rob. She is up-to-date with her screening for lipids and fasting glucose both of which came back with normal findings, no longer gets cervical cancer scr eenings or colonoscopy, last 1 done 2016 with negative findings.. She is up-to-date with her flu shot, Tdap Shingrix vaccination Prevnar 20 but does not want to get further COVID vaccines. ? Medical / Social History Reviewed? Past Medical History ?Yes . ? [place] of Care / Care Team list updated ?Yes . ? Surgical/Hospitalization History ?Yes . ? Current Medications (including OTC and supplements) ?Yes . ? Family History ?Yes . ? Tobacco Control form ?Yes . ? AUDIT-C (Alcohol use) form ?Yes . ? Illicit drug use in Social History ?Yes . ? Current diagnosis of depression? ?No ? Appropriate PHQ2/PHQ9 completed ?Yes . ? Data entered by ?[employer] and reviewed by provider ? Fall Risk ? Fall History? Have you had any falls with injury in the past year? ?No . ? Have you had two or more falls in the past year? ?No . ? Fall Risk Assessment: ?No falls in the past year . ? HRA filled out by the patient, reviewed by Provider and scanned. ? IPPE/AWV ? Balance? Romberg negative. ? Tandem walk ?unable to do. ? Walk and Turn ?Yes . ? Rise from sit to stand ?Yes . ?Vision? Corrective lens ?none ? Vision screen ? Up-to-date, goes to [facility] ?Hearing? Whisper test ?pass . ?Written Plan?Completed. See Patient Documents ??? [facility] Medical History Numbness of right hand Nocturnal leg cramps Osteopenia of multiple sites Sacral fracture, closed Fracture of left inferior pubic ramus Frequent falls Complicated laceration of lip Stress fracture of left toe Osteopenia Osteoarthritis of left knee Surgical History Hx of colonoscopy History of arthroplasty of left knee Social History Housing: House Alcohol intake: never Patient Tobacco Use Status: Never used Tobacco e-Cigarette/Vaping Use: Never Used Current occupational status: retired Cognitive needs: No Hearing needs: No Vision needs: Yes Questionnaire Medicare Wellness Checkup What is your age?: 79 or older What gender do you identify with?: female During the past 4 weeks, how much have you been bothered by emotional problems such as feeling anxious, depressed, irritable, sad or downhearted, and blue?: not at all During the past 4 weeks, has your physical & emotional health limited your social activities with family, friends, neighbors, or groups?: not at all During the past 4 weeks, how much bodily pain have you generally had?: very mild pain During the past 4 weeks, was someone available to help you if you needed & wanted help?: yes, as much as I wanted During the past 4 weeks, what was the hardest physical activity you could do for at least 2 minutes?: heavy Can you get to places out of walking distance without help? (For eg., can you travel alone on buses, taxis or drive your car?): Yes Can you go shopping for groceries or clothes without someone's help?: Yes Can you prepare your own meals?: Yes Can you do your housework without help?: Yes Because of any health problems, do you need the help of another person with your personal care needs such as eating, bathing, dressing or getting around the poonam se?: No Can you handle your own money without help?: Yes During the past 4 weeks, how would you rate your health in general?: excellent During the past 4 weeks how have things been going for you?: pretty well Are you having difficulties driving your car?: no Do you always fasten your seat belt when you are in a car?: yes, usually During past 4 weeks, have you been bothered by the following: never: Falling or dizzy when standing up, Sexual problems?, Trouble eating well?, Teeth or denture problems?, Problems using the telephone? and Tiredness or fatigue? Have you fallen 2 or more times in the past year?: No Are you afraid of falling?: Yes Are you a smoker?: no During the past 4 weeks, how many drinks of wine, beer, or other alcoholic beverages did you have?: no alcohol at all Do you exercise for about 20 minutes 3 or more times a week?: yes, most of the time Have you been given information to help with the following?: no: Hazards in your house that might hurt you? and no: Keeping track of your medications? How often do you have trouble taking medicines the way you have been told to take them?: I do not have to take medicine How confident are you that you can control & manage most of your health problems?: very confident What is your race?: White Mini Mental State Exam (MMSE) Orientation What is the (year) (season) (date) (day) (month)?: year (2024), season (Spring), date (01/11/2025), day () and month (December) Where are we (state) (county) (town or city) (hospital) (floor)?: state ([place]), county ([place]), town or city ([place]) and hospital/clinic ([facility] [place]) Score Score: 9 Activity of Daily Living Bathing - sponge bath, tub bath or shower: receives no assistance (gets in/out by self, if usual bathing means Dressing - getting clothes from closets & drawers, including inner/outer garments & fasteners.: gets clothes & gets completely dressed without help Toileting - going to the 'toilet room' for urine/bowel elimination & cleaning self/arranging clothes: goes to toilet room, cleans self, arranges clothes without help Transfer: moves in & out of bed and chair without help (may use support object) Continence: controls urination/bowel movements completely by self Feeding: feeds self without help Total Score: 0 Information obtained from: patient Using telephone: independent Traveling: independent Shopping: independent Preparing meals: independent Housework: independent Taking medicine: independent Managing money: independent PHQ-9 Over the last 2 weeks, how often have you been bothered by any of the following problems? 1. Little interest or pleasure in doing things: not at all 2. Feeling down, depressed, or hopeless: not at all 3. Trouble falling or staying asleep, or sleeping too much: several days 4. Feeling tired or having little energy: not at all 5. Poor appetite or overeating: not at all 6. Feeling bad about yourself - or that you are a failure or have let yourself or your family down: not at all 7. Trouble concentrating on things, such as reading the newspaper or watching television: not at all 8. Moving or speaking so slowly that other people could have noticed. Or the opposite - being so fidgety or restless that you have been moving around a lot more than usual: not at all 9. Thoughts that you would be better off or of hurting yourself in some way: not at all Total score: 1 Depression Screening Interpretation: Negative Depression Screening Done: Yes [id number] - PHQ-9 Billing: Yes Source: Developed by Drs. Toribio Khan, Kandy Kay, Stephen Phan and colleagues, with an educational yu from [employer] Physical Exam Vital Signs: Last Vital Signs Temp 97.4 F 01/11/25 10:55 Pulse 55 01/11/25 10:55 Resp 18 01/11/25 10:55 BP 142/60 H 01/11/25 10:55 Pulse Ox 97 01/11/25 10:55 Oxygen Delivery Method Room Air 01/11/25 10:55 BMI result Body Mass Index 18.7 Assessment & Plan Assessment & Plan (1) Osteopenia: Code(s): M85.80 - Other specified disorders of bone density and structure, unspecified site Qualifiers: Osteopenia location: multiple sites Qualified Code(s): M85.89 - Other specified disorders of bone density and structure, multiple sites Plan: Followed at [facility] endocrine clinic, currently on Prolia (2) Osteoarthritis of left knee: Code(s): M17.12 - Unilateral primary osteoarthritis, left knee Qualifiers: Osteoarthritis type: primary Qualified Code(s): M17.12 - Unilateral primary osteoarthritis, left knee Plan: Takes Tylenol as needed for joint pain, stays active (3) Encounter for subsequent annual wellness visit (AWV) in Medicare patient: Code(s): Z00.00 - Encounter for general adult medical examination without abnormal findings Plan Medical wellness checklist reviewed, discussed with patient and updated. Up-to-date with her advanced directives and vaccines Quality Reporting (2019) Depression/Bipolar (159/160/161/177) PHQ-9: Total score: 1 Coding Level of Care Code Medicare Subsequent (G0439) Diagnoses Osteopenia of multiple sites M85.89 Osteopenia location: multiple sites Primary osteoarthritis of left knee M17.12 Osteoarthritis type: primary Encounter for subsequent annual wellness visit (AWV) in Medicare patient Z00.00 CPT Codes Advance Care Planning - Advance Care Planning discussion: On file, no changes ([id number]) Advance Care Planning - Time spent: 1-15 minutes, on File ([id number]) Additional Codes PHQ-9 - 09989 - PHQ-9 Billing: Yes ([id number]) Advance Care Planning Advance Care Planning discussion: On file, no changes Date of discussion: 01/21/25 Who was present: Patient Forms completed: Health Care Proxy and MOLST Time spent: 1-15 minutes, on File Actual minutes spent: 1
[2025-01-11 10:55] VITALS: BP 142/60; PULSE 55; RESP 18; TEMP 36.3; O2SAT 97; BMI 18.7
== END 2025-01-11 11:46 | disposition home or self-care (01) ==
LOC: HO.HMCC 10:33
PROVIDERS: PCP Internal Medicine; Visit Provider Internal Medicine
DX: Z00.00 Encounter for general adult medical examination without abnormal findings (principal); M85.89 Other specified disorders of bone density and structure, multiple sites; M17.12 Unilateral primary osteoarthritis, left knee

== ENCOUNTER → 2025-01-11 10:32 | Outpatient (BNVA) | payer MEDICARE, SELFPAY | PROVIDERS: PCP Internal Medicine; Visit Provider Internal Medicine | DX: Z00.00 Encounter for general adult medical examination without abnormal findings (principal); M85.89 Other specified disorders of bone density and structure, multiple sites; M17.12 Unilateral primary osteoarthritis, left knee | CPT/HCPCS: 96127 ==

== ENCOUNTER 2025-06-08 08:14 | Outpatient (REF) | payer MEDICARE, SELFPAY ==
--- NOTE | ~2025-06-08 | MM_ITS ---
EXAMINATION: MM SCREENING DIGITAL BREAST TOMOSYNTHESIS, BILATERAL CLINICAL INFORMATION: Screening. Asymptomatic. COMPARISON: Mammography: Comparison is made with available priors TECHNIQUE: Digital breast mammography with tomosynthesis is performed in both the craniocaudal and mediolateral oblique views along with computer-aided detection (CAD). FINDINGS: The breasts are heterogeneously dense, which may obscure small masses. Bilateral scattered asymmetries are stable. There are no significant masses, abnormal calcifications, or other abnormalities. MM/MM tomosynthesis screening BI IMPRESSION: No mammographic evidence of malignancy. ASSESSMENT: BI-RADS Category 2: Benign RECOMMENDATION: Routine annual mammography screening. 1 year F/U This examination should not preclude the clinical evaluation of a suspicious palpable abnormality. This patient's information was entered into a reminder system with a target due date for their next mammogram. Electronically signed by: Cesilia Barroso DO 06/11/2025 02:39 PM EDT
== END 2025-06-08 08:15 | disposition home or self-care (01) ==
LOC: HO.MAMMO 08:14
PROVIDERS: PCP Internal Medicine; Visit Provider Internal Medicine
DX: Z12.31 Encounter for screening mammogram for malignant neoplasm of breast (principal)
CPT/HCPCS: 77063; 77067

== ENCOUNTER → 2025-06-08 08:30 | Outpatient (BNV) | payer MEDICARE, SELFPAY | PROVIDERS: PCP Internal Medicine; Visit Provider Internal Medicine | DX: Z12.31 Encounter for screening mammogram for malignant neoplasm of breast (principal) | CPT/HCPCS: 77063; 77067 ==

== ENCOUNTER 2025-06-28 09:57 | Outpatient (AMB) | payer MEDICARE, SELFPAY ==
--- OUTSIDE RECORDS SUMMARY | 2024-01-18 04:00 | XMS_ITS ---
Author Organization [facility] Address [address] [place] [address] Care Team Providers Care Health Science Specialist Name Role Phone Del DASILVA, Abirl Hicks Primary Care Provider Un available Oscar Lloyd Unavailable [phone] saba Encounters Encounter Location Date Provider Diagnosis [address] [address] 01/18/2024 Oscar Lloyd Plan Of Treatment Next Appt Details Provider Name:Oscar Lloyd , 07/11/2025 08:45:00 AM, [address] [facility], [place] [address], [place], [address], Progress Notes * Sejal LARSON VDOB:1940 (84 yo F)Acc No.[id number]:01/18/2024 Progress Note Patient: Adriel ROACHMaged Sejal Quinteros Provider: Jeffrey Lloyd DPM :1940 A ge:83 Y S ex:Female Date:01/18/2024 Address:[facility] [id number] Pcp:Eileen Alicea Subjective: * Chief Complaints: * [address] saba[address] * Medical History: Objective: * Vitals: Assessment: Plan: * Treatment: * Images: * The named appointment provid er may or may not be the originator of this progress note, and it is not deemed complete until electronically signed by the appointment provider. Sign off status: Pending * Provider: Jeffrey Lloyd DPM Date: 0 01/18/2024 Generated for Ignacia pineda/Crista/Marlene on: 08/28/2024 11:24 AM EST
--- NOTE | 2025-06-28 10:25 | MHC.PC.OV ---
Vital Signs 06/28/25 10:35 Height 5 ft 4 in Weight 110 lb BMI 18.9 BP 138/70 Blood Pressure Location Lt brachial Position Sitting Respiration 17 Pulse 65 Pulse Source Pulse Oximeter Temp 98.3 F Temp Source Oral Pulse Oximetry (%) 98 Oxygen Delivery Method Room Air Intake Visit Reasons: hemorrhoids? Intake Note: Pt is here today c/o ?hemorrhoids: rectal pain [id number] Allergies oxycodone (Percocet) Allergy (Unknown, Verified 07/04/25 04:16) skin rash tramadol Allergy (Verified 07/04/25 04:16) shakiness Medication List - Last Reconciled 07/04/25 by Abril Mathis MD acetaminophen 975 mg PO Q8H PRN B-complex with vitamin C 1 cap PO DAILY calcium carbonate (Calcium 600) 1,600 mg PO DAILY cholecalciferol (vitamin D3) 25 mcg PO DAILY denosumab (Prolia) 60 mg subcut [id number] omega-3 fatty acids 1,000 mg PO DAILY s-adenosylmethionine (TRESSA-e (Enteric Coated)) 400 mg PO DAILY Tobacco use date assessed: 06/28/25 Fall risk assessment: No Falls in past year Last assessed Fall Risk: 06/28/25 Dental Screening Dental Screen Date: 06/28/25 Did you have a dental visit in the last 12 months?: Yes Did you have a dental problem in the last 6 months where you did not have access to dental care?: No Was dental information given to patient?: Patient has dentist HPI hemorrhoids? HPI Details The patient is an 84-year-old female presenting for evaluation of pain and pressure felt in her leg and rectal area. The symptoms have been present for a couple of weeks, causing her concern. The area is tender to touch, though she could not visualize any abnormalities herself. Past surgical history is notable for a uterine prolapse repair performed about five years ago, and she reports no current symptoms of recurrence. She has a history of primary sclerosing cholangitis, and her last colonoscopy was in 2015. She undergoes a surveillance MRI for her liver every two years and has an appointment scheduled in two weeks with Dr. Gonsalez. [facility] Medical History (Updated 07/04/25 @ 04:25 by Abril Mathis MD) Primary sclerosing cholangitis Primary sclerosing cholangitis Numbness of right hand Nocturnal leg cramps Osteopenia of multiple sites Sacral fracture, closed Fracture of left inferior pubic ramus Frequent falls Complicated laceration of lip Stress fracture of left toe Osteopenia Osteoarthritis of left knee Surgical History Hx of colonoscopy History of arthroplasty of left knee Social History Housing: House Alcohol intake: never Patient Tobacco Use Status: Never used Tobacco e-Cigarette/Vaping Use: Never Used Current occupational status: retired Cognitive needs: No Hearing needs: No Vision needs: Yes Questionnaire Thrive Questionnaire Date Thrive assessed: 06/28/25 I am a: Patient What is your living situation today?: I have a steady place to live Within the past 12 months, did the food you bought not last and you didn't have the money to get more?: Never true Within the past 12 months, did you worry whether your food would run out before you got money to buy more?: Never true Do you have trouble paying for medicines?: No Do you have trouble getting transportation to medical appointments?: No Do you have trouble paying your heating and electricity bill?: No Do you have trouble taking care of your child, family member or friend?: No Do you have trouble with day-to-day activities such as bathing, preparing meals, shopping, managing finances, etc.?: No Are you currently unemployed and looking for a job?: No Are you interested in more education?: No Please select the resources that you would like help with: None Currently or been in a relationship where the following occur: No concerns reported THRIVE Score: 0 AUDIT C Alcohol Use Questionnaire (AUDIT-C) 1. How often do you have a drink containing alcohol?: Never Total Score: 0 FREDDY-7 AMB Questionnaire FREDDY-7 Date FREDDY - 7 assessed: 05/11/24 Feeling nervous, anxious, or on edge: 0 = Not at all Not being able to stop or control worryin = Several days Worrying too much about different things: 0 = Not at all Trouble relaxin = Not at all Being so restless that it is hard to sit still: 0 = Not at all Becoming easily annoyed or irritable: 0 = Not at all Feeling afraid as if something awful might happen: 0 = Not at all Total FREDDY-7 score (0-4 normal; 5-9 mild; 10-14 moderate; 15-21 severe): 1 Source: Developed by Drs. Toribio Khan, Kandy Kay, Stephen Phan and colleagues, with an educational yu from [employer]. Review of Systems Const All systems reviewed & are unremarkable except as noted in HPI and below Physical exam (Primary Care) Vital Signs: Last Vital Signs Temp 98.3 F 06/28/25 10:35 Pulse 65 06/28/25 10:35 Resp 17 06/28/25 10:35 BP 138/70 06/28/25 10:35 Pulse Ox 98 06/28/25 10:35 Oxygen Delivery Method Room Air 06/28/25 10:35 BMI result Body Mass Index 18.9 Tobacco/Smoking Status: Tobacco use Status Tobacco use date assessed 06/28/25 06/28/25 10:28 Patient Tobacco Use Status Never used Tobacco 06/28/25 10:28 e-Cigarette/Vaping Use Never Used 06/28/25 10:28 Thrive Assessment: Date of Thrive Assessment Date Thrive assessed 06/28/25 06/28/25 10:28 Currently or been in a relationship where the following occur: No concerns reported Narrative - Genitourinary/Perineal: External genitalia exam reveals very dry skin. - No lesions, abscesses, or masses noted on the labia or in the perineal region. - No pain on palpation. - No inguinal lymphadenopathy. - Vaginal vault is without evidence of prolapse. - Rectal: External inspection reveals no lesions or hemorrhoids. Coding Level of Care Code Est Pt Level 4 (66697) Diagnoses Perineal pain in female R10.2 Primary sclerosing cholangitis K83.01 Assessment & Plan Assessment & Plan (1) Perineal pain in female: Code(s): R10.2 - Pelvic and perineal pain Plan: 1. Perineal pain The patient's symptoms of rectal and leg pain, present for a few weeks, are likely due to irritation from xerosis (dry skin), potentially exacerbated by friction from pads used for incontinence. Physical examination did not reveal any acute pathology such as an abscess, mass, lesion, or hemorrhoid advised to use an external moisturizing lotion to alleviate the dryness. (2) Primary sclerosing cholangitis: Code(s): K83.01 - Primary sclerosing cholangitis Category: Medical Plan: The patient is due for a colonoscopy, with her last one performed in 2015. She will discuss the necessity of a repeat procedure with Dr. Gonsalez at her upcoming appointment. She is scheduled for her biennial liver surveillance MRI in two weeks Plan Immunizations are up-to-date, including recent influenza and COVID-19 shots. Patient was informed and verbally consented to the use of an ambient scribe for clinic note documentation during this visit.
[2025-06-28 10:35] VITALS: BP 138/70; PULSE 65; RESP 17; TEMP 36.8; O2SAT 98; BMI 18.9
--- OUTSIDE RECORDS SUMMARY | 2025-06-28 11:25 | XMS_ITS | Patient Health Record ---
Author Organization [facility] n[place]aly [place] Address [address] [facility] [place] [address] Care Team Providers Care Database Software Technician Name Role Phone Del DASILVA, Abril Hicks Primary Care Provider Un available Oscar Lloyd Unavailable [phone] Allergies Allergen (clinical drug ingredient) Drug/Non Drug [...] to skin of feet including between the toes; Duration: 30 days Not-Taking Immunizations Vaccine Route Administration Date Status Comme nts Influenza Unknown 04/24/2024 Administered Social History Tobacco Use: Social History Observation Description Date Details (start date - stop date) Never Smoker NA - NA Tobacco use other than smoking: Question Answer Notes Are you an other tobacco user? No Tobacco Control (Standard) Question Answer Notes Tobacco use: Nonsmoker Additional Findings: Tobacco non-user Current no nsmoker AUDIT-C (Standard) Question Answer Notes Did you have a drink containing alcohol in the p ast year? No Points 0 Interpretation Negative Problems Problem Type SNOMED Code ICD Code Onset Dates Problem Status W/U Status Risk Notes Problem Bilateral atherosclerosis of arteries of lower limbs (disorder) ([id number] ) Atherosclerosis of burns paiute artery of both lower extremities, with unspecified presence of clinical manifestation (I70.203) Active confirmed Vital Signs Blood pressure diastolic 70 mm Hg 03/28/2025 Height 5 ft 1 in in 03/28/2025 Blood pressure systolic 127 mm Hg 03/28/2025 Weight 108 lbs 03/28/2025 BMI 20.4 kg/m2 03/28/2025 Procedures Procedure Date Ordered Date Performed Result Body Sit e 46893-RANSUZK NAIL, 6 OR MORE 06/28/2024 N/A 01785-GAYT SKIN LESIONS, 2 TO 4 06/28/2024 N/A 03681-TELXTUC NAIL, 6 OR MORE 09/27/2024 N/A 98134-MJFA SKIN LESIONS, 2 TO 4 09/27/2024 N/A 35393-RHYJFKO NAIL, 6 OR MORE 12/27/2024 N/A 40196-AQQJ SKIN LESIONS, 2 TO 4 12/27/2024 N/A 17302-BRQODMS NAIL, 6 OR MORE 03/28/2025 N/A 14230-GNUY SKIN LESIONS, 2 TO 4 03/28/2025 N/A Encounters Encounter Location Date Provider Diagnosis [address] [address] 06/28/2024 Oscar Prema Atherosclerosis of burns paiute artery of both lower extremities, with unspecified presence of clinical manifestation I70.203 ; Tinea unguium B35.1 ; Pain in right toe(s) M79.674 and Pain in left toe(s) M79.[address] [address] 09/27/2024 Oscar Prema Atherosclerosis of burns paiute artery of both lower extremities, with unspecified presence of clinical manifestation I70.203 ; Tinea unguium B35.1 ; Pain in right toe(s) M79.674 ; Pain in left toe(s) M79.675 and Tinea pedis of both feet B35.[address] [address] 12/27/2024 Oscar Prema Atherosclerosis of burns paiute artery of both lower extremities, with unspecified presence of clinical manifestation I70.203 ; Tinea unguium B35.1 ; Pain in right toe(s) M79.674 ; Pain in left toe(s) M79.675 and Tinea pedis of both feet B35.[address] [address] 03/28/2025 Oscar Lloyd Atherosclerosis of burns paiute artery of both lower extremities, with unspecified presence of clinical manifestation I70.203 ; Tinea unguium B35.1 ; Pain in right toe(s) M79.674 and Pain in left toe(s) M79.675 [facility] [place] [address] [address] 10/26/2024 Oscar Lloyd Assessments Encounter Date Diagnosis (ICD Code) Assessment Notes Treatment Notes Treatment Clinical Notes Section Notes 06/28/2024 Tinea unguium (ICD-10 - B35.1) 06/28/2024 Atherosclerosis of burns paiute artery of both lower extremities, with unspecified presence of clinical manifestation (ICD-10 - I70.203) 09/27/2024 Tinea unguium (ICD-10 - B35.1) 09/27/2024 Atherosclerosis of burns paiute artery of both lower extremities, with unspecified presence of clinical manifestation (ICD-10 - I70.203) 12/27/2024 Tinea unguium (ICD-10 - B35.1) 12/27/2024 Atherosclerosis of burns paiute artery of both lower extremities, with unspecified presence of clinical manifestation (ICD-10 - I70.203) 03/28/2025 Tinea unguium (ICD-10 - B35.1) 03/28/2025 Atherosclerosis of burns paiute artery of both lower extremities, with unspecified presence of clinical manifestation (ICD-10 - I70.203) 12/27/2024 Pain in right toe(s) (ICD-10 - M79.674) 03/28/2025 Pain in right toe(s) (ICD-10 - M79.674) 06/28/2024 Pain in right toe(s) (ICD-10 - M79.674) 09/27/2024 Pain in right toe(s) (ICD-10 - M79.674) 09/27/2024 Pain in left toe(s) (ICD-10 - M79.675) 06/28/2024 Pain in left toe(s) (ICD-10 - M79.675) 12/27/2024 Pain in left toe(s) (ICD-10 - M79.675) 03/28/2025 Pain in left toe(s) (ICD-10 - M79.675) 12/27/2024 Tinea pedis of both feet (ICD-10 - B35.3) 09/27/2024 Tinea pedis of both feet (ICD-10 - B35.3) Plan Of Treatment Pending Test Test Name Order Date 69654-TQEKMER NAIL, 6 OR MORE 10/19/2023 90853-LWFIWEN NAIL, 6 OR MORE 03/28/2024 55943-BKMFHVV NAIL, 6 OR MORE 06/28/2024 10504-JKMWRGW NAIL, 6 OR MORE 09/27/2024 56559-XUQMEWS NAIL, 6 OR MORE 12/27/2024 14001-GMGNTHL NAIL, 6 OR MORE 03/28/2025 51426-YVYB SKIN LESIONS, 2 TO 4 03/28/20 25 91031-YGIX SKIN LESIONS, 2 TO 4 12/28/19 25 94941-IYEK SKIN LESIONS, 2 TO 4 09/27/19 25 48104-AOYF SKIN LESIONS, 2 TO 4 06/28/20 24 07964-NREN SKIN LESIONS, 2 TO 4 03/28/20 24 17466-SRRK SKIN LESIONS, 2 TO 4 10/19/19 24 Next Appt Details Provider Name:Oscar Lloyd , 07/11/2025 08:45:00 AM, [address] [facility], [place] [address], [place], [address], Insurance Providers Payer Name Payer Address Payer Phone Subscriber Number Group Number Insured Name Patient Relationship to Insured Coverage Start Date Coverage End Date Medicare National [facility] [address] [facility] [place] [address] [id number] Sejal Larson Self - patient is the insured [employer] [address] [place] [address] [phone] [id number] Sejal Larson Self - patient is the insured Medical (General) History Medical History History ICD Code Arthritis Back,Hip,and Knee pain covid-19 Liver disease Osteoporosis Measles Chicken pox Joint implants/screws Cataracts Surgical History Surgery Date(Month/Year) tubal ligation 1974 uterine surgery 2017 knee replacement 2019
== END 2025-06-28 11:02 | disposition home or self-care (01) ==
LOC: HO.HMCC 09:58
PROVIDERS: PCP Internal Medicine; Visit Provider Internal Medicine
DX: R10.20 Pelvic and perineal pain unspecified side (principal); K83.01 Primary sclerosing cholangitis

== ENCOUNTER → 2025-06-28 09:57 | Outpatient (BNVA) | payer MEDICARE, SELFPAY | PROVIDERS: PCP Internal Medicine; Visit Provider Internal Medicine | DX: R10.20 Pelvic and perineal pain unspecified side (principal); K83.01 Primary sclerosing cholangitis | CPT/HCPCS: 99212 ==